=== PATIENT | female | born 1985 | race Caucasian/White ===

== ENCOUNTER 2016-10-14 08:07 | Emergency (ER) | payer MEDICAID ==
[~2016-10-14] VITALS: Ht 162.6 cm; Wt 100.0 kg
[~2016-10-14 08:07] MED LIST: PANT40IN3 PO; ZOFR4TAB3 SL
[2016-10-14 08:18] VITALS: BP 145/81; PULSE 87; RESP 16; TEMP 98.2; O2SAT 100
[2016-10-14] MEDS ORDERED: HYDROmorphone HCL PF 1 MG/ML VIAL IVS ONE (08:45)
[2016-10-14] MEDS ORDERED: PROCHLORPERAZINE INJ 10 MG/2 ML VIAL IV PUSH ONE (08:45)
[2016-10-14] MEDS ORDERED: ONDANSETRON HCL 4 MG/2 ML VIAL IVP ONE (08:45)
[2016-10-14] MEDS ORDERED: SODIUM CHLOR 0.9% 1000 ML INJ 1,000 ML IV ONE (08:45)
[2016-10-14] MEDS ORDERED: SODIUM CHLORIDE 0.9% FLUSH 10 ML FLUSH IV FLUSH PRN (08:45)
--- NOTE | 2016-10-14 08:47 | PD ---
HPI Chief Complaint: Abdominal Pain Time Seen by Provider: 08:23 Travel History International Travel<30 days: No Contact w/Intl Traveler<30days: No Traveled to known affect area: No History of Present Illness HPI The patient was seen and examined in the presence of the nurse. At no point in time was I in the room without the nurse present. This patient complains of abdominal pain and nausea and vomiting and diarrhea. Duration 4 hours. Symptoms are severe according to the patient. No alleviating factors. Patient is moaning and writhing about in the room. Challenging to evaluate. She is anxious and hyperventilating. PFSH Past Medical History Anxiety: Yes Cardiovascular Problems: No Cerebrovascular Accident: No Diabetes: Yes (GESTATIONAL) Patient Takes Glucophage: No Diminished Hearing: No Gastrointestinal Disorders: Yes (diarrhea 3 days ago- no recent episodes) GERD: Yes Genitourinary: No Headaches: Yes Hiatal Hernia: No Kidney Stones: Yes (at age less than 10) Musculoskeletal: No Neurologic: No Reproductive: No Respiratory: No Immunizations Current: Yes Migraines: Yes Seizures: No Ulcer: Yes Tetanus Vaccination: Unknown ?: Not LMP: 1 1/2 weeks : 4 Para: 2 Miscarriage: 1 : 1 Past Surgical History Section: Yes (X 1) Gynecologic Surgery: Yes () Other Surgery: Yes Social History Alcohol Use: Yes (occ) Tobacco Use: No Substance Use: No Allergies-Medications (Allergen,Severity, Reaction): Coded Allergies: No Known Allergies (Unverified , 10/14/16) Reported Meds & Prescriptions Reported Meds & Active Scripts Active No Active Prescriptions or Reported Medications Review of Systems General / Constitutional: No: Fever Eyes: No: Visual changes HENT: No: Headaches Cardiovascular: No: Chest Pain or Discomfort Respiratory: No: Shortness of Breath Gastrointestinal: Positive: Nausea, Vomiting, Diarrhea, Abdominal Pain Genitourinary: No: Dysuria Musculoskeletal: No: Pain Skin: No Rash Neurologic: No: Weakness Psychiatric: Positive: Anxiety, No: Depression Endocrine: No: Polydipsia Hematologic/Lymphatic: No: Easy Bruising Physical Exam Narrative GENERAL: Overweight well-developed patient anxious and hyperventilating and moaning in the bed. SKIN: Focused skin assessment reveals no rash and nodules. Skin is Warm and dry. HEAD: Atraumatic. Normocephalic. EYES: Pupils equal and round. No scleral icterus. No injection or drainage. ENT: No nasal bleeding or discharge. Mucous membranes pink and moist. NECK: Trachea midline. No JVD. CARDIOVASCULAR: Regular rate and rhythm. No murmur appreciated. RESPIRATORY: No accessory muscle use. Clear to auscultation. Breath sounds equal bilaterally. GASTROINTESTINAL: Abdomen soft, obese, periumbilical tenderness without rebound or guarding, nondistended. Hepatic and splenic margins not palpable. MUSCULOSKELETAL: No obvious deformities. No clubbing. No cyanosis. No edema. NEUROLOGICAL: Awake and alert. No obvious cranial nerve deficits. Motor grossly within normal limits. Normal speech. PSYCHIATRIC: Very anxious mood and affect; insight and judgment questionable. Data Data Last Documented VS Vital Signs Date Time Temp Pulse Resp B/P Pulse Ox O2 Delivery O2 Flow Rate FiO2 10/14/16 08:31 16 10/14/16 08:18 98.2 87 145/81 100 Orders Beta Hcg (Quant/Titer) (10/14/16 08:39) Complete Blood Count With Diff (10/14/16 08:39) Comprehensive Metabolic Panel (10/14/16 08:39) Lipase (10/14/16 08:39) Iv Access Insert/Monitor (10/14/16 08:39) NPO (10/14/16 08:39) Ondansetron Inj (Zofran Inj) (10/14/16 08:45) Sodium Chloride 0.9% Flush (Ns Flush) (10/14/16 08:45) Hydromorphone Pf Inj (Dilaudid Pf Inj) (10/14/16 08:45) Sodium Chlor 0.9% 1000 Ml Inj (Ns 1000 M (10/14/16 08:45) Prochlorperazine Inj (Compazine Inj) (10/14/16 08:45) Lorazepam Inj (Ativan Inj) (10/14/16 09:00) Labs Laboratory Tests Test 10/14/16 08:52 White Blood Count 18.9 TH/MM3 Red Blood Count 5.28 MIL/MM3 Hemoglobin 13.8 GM/DL Hematocrit 42.0 % Mean Corpuscular Volume 79.5 FL Mean Corpuscular Hemoglobin 26.1 PG Mean Corpuscular Hemoglobin 32.8 % Concent Red Cell Distribution Width 13.4 % Platelet Count 240 TH/MM3 Mean Platelet Volume 10.1 FL Neutrophils (%) (Auto) 78.3 % Lymphocytes (%) (Auto) 16.4 % Monocytes (%) (Auto) 4.3 % Eosinophils (%) (Auto) 0.8 % Basophils (%) (Auto) 0.2 % Neutrophils # (Auto) 14.8 TH/MM3 Lymphocytes # (Auto) 3.1 TH/MM3 Monocytes # (Auto) 0.8 TH/MM3 Eosinophils # (Auto) 0.2 TH/MM3 Basophils # (Auto) 0.0 TH/MM3 CBC Comment DIFF FINAL Differential Comment Sodium Level 141 MEQ/L Potassium Level 3.7 MEQ/L Chloride Level 104 MEQ/L Carbon Dioxide Level 24.9 MEQ/L Anion Gap 12 MEQ/L Blood Urea Nitrogen 15 MG/DL Creatinine 0.78 MG/DL Estimat Glomerular Filtration 87 ML/MIN Rate Random Glucose 160 MG/DL Calcium Level 9.7 MG/DL Total Bilirubin 0.3 MG/DL Aspartate Amino Transf 14 U/L (AST/SGOT) Alanine Aminotransferase 25 U/L (ALT/SGPT) Alkaline Phosphatase 69 U/L Total Protein 8.0 GM/DL Albumin 4.1 GM/DL Lipase 196 U/L Human Chorionic Gonadotropin, LESS THAN 1 Quant MIU/ML MDM Medical Decision Making Medical Screen Exam Complete: Yes Emergency Medical Condition: Yes Medical Record Reviewed: Yes Differential Diagnosis Gastroparesis, cyclical vomiting syndrome, narcotic withdrawal Narrative Course I have reviewed the patient's electronic medical record. Patient is a frequent visitor for this same problem. She's had 4 CT scans of the abdomen and pelvis over the last urine affect and all negative for acute problem but show fatty liver IV placed I gave her IV Zofran and IV Compazine and IV Dilaudid for symptom relief I gave her 1 L normal saline IV bolus CBC shows leukocytosis as expected for active retching and vomiting Metabolic profile is normal LFTs are normal Lipase is normal Beta hCG is negative On recheck patient is resting comfortably, much improved. This is a flare of a recurrent problem. Feel imaging is needed at this point. She's had 4 CT scans for the same thing in the past. I wrote her some Zofran Recommend clear liquids for 24 hours and GI follow-up Diagnosis Primary Impression: Nausea vomiting and diarrhea Additional Impression: Abdominal pain Qualified Code: R10.84 - Generalized abdominal pain Additional Instructions: The patient was advised to follow up with their physician and return if they worsen. I have recommended clear liquids for 24 hours, then gradually advance as tolerated. Med/Other Pt SpecificInfo: Prescription(s) given Scripts Ondansetron (Zofran)4 Mg Tab4 Mg PO Q6HR PRN (NAUSEA OR VOMITING) #15 TAB Ref 0 Prov:Fitz Hinds MD 10/14/16 Disposition: 01 DISCHARGE HOME Condition: Stable Fitz Hinds MD Oct 14, 2016 08:47
[2016-10-14] MEDS ORDERED: LORazepam 2 MG/ML VIAL IV PUSH ONE (09:00)
[2016-10-14 09:11] LABS: CHLORIDE 104 MEQ/L (98-107); POTASSIUM 3.7 MEQ/L (3.5-5.1); SODIUM (NA) 141 MEQ/L (136-145)
[2016-10-14 09:13] LABS: AUTOMATED NEUTROPHIL # 14.8 TH/MM3 (1.8-7.7); BASOPHIL % 0.2 % (0.0-2.0); EOSINOPHIL # 0.2 TH/MM3 (0-0.4); EOSINOPHIL % 0.8 % (0.0-4.0); LYMPH % 16.4 % (9.0-44.0); LYMPHOCYTE # 3.1 TH/MM3 (1.0-4.8); MEAN CELL VOLUME 79.5 FL (80.0-100.0); MEAN CORPUSCULAR HEMOGLOBIN 26.1 PG (27.0-34.0); MEAN CORPUSCULAR HGB CONC 32.8 % (32.0-36.0); MONO % 4.3 % (0.0-8.0); NEUT % 78.3 % (16.0-70.0); PLATELET COUNT 240 TH/MM3 (150-450); RED BLOOD COUNT 5.28 MIL/MM3 (4.00-5.30); RED CELL DISTRIBUTION WIDTH 13.4 % (11.6-17.2); WHITE BLOOD COUNT 18.9 TH/MM3 (4.0-11.0)
[2016-10-14 09:15] LABS: ANION GAP 12 MEQ/L (5-15); BICARBONATE 24.9 MEQ/L (21.0-32.0); BLOOD UREA NITROGEN 15 MG/DL (7-18)
[2016-10-14 09:18] LABS: ALT (GPT) 25 U/L (10-53); AST (GOT) 14 U/L (15-37); GLOMERULAR FILTRATION RATE 87 ML/MIN (>89)
[2016-10-14 09:20] LABS: HEMO FLAGS DIFF FINAL; TOTAL BILIRUBIN ADULT 0.3 MG/DL (0.2-1.0)
[2016-10-14 09:21] LABS: ALKALINE PHOSPHATASE 69 U/L (45-117)
[2016-10-14 09:23] LABS: BETA HCG QUANT LESS THAN 1 MIU/ML (0-5)
[2016-10-14 09:44] VITALS: BP 147/82
[2016-10-14] MEDS ORDERED: ZOFR4TAB PO (09:44)
== END 2016-10-14 09:55 | disposition home or self-care (01) ==
LOC: PHED 08:07
DX: R19.7 Diarrhea, unspecified (principal); R10.84 Generalized abdominal pain; R11.2 Nausea with vomiting, unspecified
CPT/HCPCS: 80053; 83690; 84702; 85025; 96361; 96374; 96375; 99284; J0780; J1170; J2060; J2405; J7030

== ENCOUNTER 2016-10-15 19:48 | Observation (INO) | payer MEDICAID ==
[~2016-10-15] VITALS: Ht 162.6 cm; Wt 103.3 kg
[~2016-10-15 19:48] MED LIST changes: -PANT40IN3 PO; +ZOFR4TAB PO; -ZOFR4TAB3 SL
[2016-10-15 19:52] VITALS: BP 182/89; PULSE 75; RESP 18; TEMP 98.4; O2SAT 98
[2016-10-15] MEDS ORDERED: ONDANSETRON HCL 4 MG/2 ML VIAL IV PUSH ONE (20:00)
[2016-10-15] MEDS ORDERED: SODIUM CHLOR 0.9% 1000 ML INJ 1,000 ML IV ONE ×2 (20:00)
--- NOTE | 2016-10-15 20:06 | PD ---
HPI Chief Complaint: GI Complaint Time Seen by Provider: 19:58 Travel History International Travel<30 days: No Contact w/Intl Traveler<30days: No Traveled to known affect area: No History of Present Illness HPI This 31-year-old female is complaining of epigastric pain and vomiting. She says the symptoms started a few hours ago. She had some symptoms yesterday and was seen in the ER and given some meds and gallbladder she says she gets attacks like this once or twice a year. She has had endoscopy and apparently has a gastric ulcer. She is on Prilosec. She is having epigastric pain and vomiting she has vomited repeatedly since the onset of these symptoms. She says there is no chance of . She has had multiple CAT scans of the abdomen and pelvis. PFSH Past Medical History Anxiety: Yes Cardiovascular Problems: No Cerebrovascular Accident: No Diabetes: Yes (GESTATIONAL) Diminished Hearing: No Gastrointestinal Disorders: Yes (diarrhea 3 days ago- no recent episodes) GERD: Yes Genitourinary: No Headaches: Yes Hiatal Hernia: No Kidney Stones: Yes (at age less than 10) Musculoskeletal: No Neurologic: No Reproductive: No Respiratory: No Immunizations Current: Yes Migraines: Yes Seizures: No Ulcer: Yes ?: Not LMP: 10 DAYS AGO : 4 Para: 2 Miscarriage: 1 : 1 Past Surgical History Section: Yes (X 1) Gynecologic Surgery: Yes () Other Surgery: Yes Social History Alcohol Use: Yes (occ) Tobacco Use: No Substance Use: No Allergies-Medications (Allergen,Severity, Reaction): Coded Allergies: No Known Allergies (Unverified , 10/15/16) Reported Meds & Prescriptions Reported Meds & Active Scripts Active Zofran (Ondansetron HCl) 4 Mg Tab 4 Mg PO Q6HR PRN Review of Systems General / Constitutional: No: Fever Eyes: No: Diploplia, Blurred Vision HENT: No: Headaches, Vertigo Cardiovascular: No: Chest Pain or Discomfort, Palpitations Respiratory: No: Cough, Shortness of Breath Gastrointestinal: Positive: Nausea, Vomiting, Abdominal Pain, No: Diarrhea, Constipation Genitourinary: No: Urgency, Frequency Musculoskeletal: No: Myalgias, Arthralgias Skin: No Rash, No Itching Neurologic: Positive: Weakness, No: Dizziness Hematologic/Lymphatic: No: Easy Bruising Physical Exam Narrative GENERAL: Well-developed female. She is vomiting quite violently on arrival SKIN: Focused skin assessment warm/dry. HEAD: Atraumatic. Normocephalic. EYES: Pupils equal and round. No scleral icterus. No injection or drainage. ENT: No nasal bleeding or discharge. Mucous membranes pink and moist. NECK: Trachea midline. No JVD. CARDIOVASCULAR: Regular rate and rhythm. No murmur appreciated. RESPIRATORY: No accessory muscle use. Clear to auscultation. Breath sounds equal bilaterally. GASTROINTESTINAL: Abdomen soft, there is some epigastric tenderness without guarding or rigidity, nondistended. Hepatic and splenic margins not palpable. MUSCULOSKELETAL: No obvious deformities. No clubbing. No cyanosis. No edema. NEUROLOGICAL: Awake and alert. No obvious cranial nerve deficits. Motor grossly within normal limits. Normal speech. PSYCHIATRIC: Appropriate mood and affect; insight and judgment normal. Data Data Last Documented VS Vital Signs Date Time Temp Pulse Resp B/P Pulse Ox O2 Delivery O2 Flow Rate FiO2 10/15/16 20:20 18 10/15/16 19:52 98.4 75 182/89 98 Orders Complete Blood Count With Diff (10/15/16 20:00) Comprehensive Metabolic Panel (10/15/16 20:00) Lipase (10/15/16 20:00) Urinalysis - C+S If Indicated (10/15/16 20:00) Sodium Chlor 0.9% 1000 Ml Inj (Ns 1000 M (10/15/16 20:00) Sodium Chlor 0.9% 1000 Ml Inj (Ns 1000 M (10/15/16 20:00) Ondansetron Inj (Zofran Inj) (10/15/16 20:00) Hydromorphone Pf Inj (Dilaudid Pf Inj) (10/15/16 20:15) Metoclopramide Inj (Reglan Inj) (10/15/16 20:15) Prochlorperazine Inj (Compazine Inj) (10/15/16 20:45) Diphenhydramine Inj (Benadryl Inj) (10/15/16 20:45) Lorazepam Inj (Ativan Inj) (10/15/16 20:45) Potassium Chlor 20 Meq Premix (Kcl 20 Me (10/15/16 21:00) Labs Laboratory Tests Test 10/15/16 20:23 White Blood Count 19.7 TH/MM3 Red Blood Count 5.55 MIL/MM3 Hemoglobin 14.4 GM/DL Hematocrit 44.8 % Mean Corpuscular Volume 80.6 FL Mean Corpuscular Hemoglobin 26.0 PG Mean Corpuscular Hemoglobin 32.3 % Concent Red Cell Distribution Width 13.2 % Platelet Count 254 TH/MM3 Mean Platelet Volume 9.7 FL Neutrophils (%) (Auto) 79.9 % Lymphocytes (%) (Auto) 13.3 % Monocytes (%) (Auto) 3.8 % Eosinophils (%) (Auto) 1.5 % Basophils (%) (Auto) 1.5 % Neutrophils # (Auto) 15.8 TH/MM3 Lymphocytes # (Auto) 2.6 TH/MM3 Monocytes # (Auto) 0.7 TH/MM3 Eosinophils # (Auto) 0.3 TH/MM3 Basophils # (Auto) 0.3 TH/MM3 CBC Comment AUTO DIFF Sodium Level 141 MEQ/L Potassium Level 3.4 MEQ/L Chloride Level 105 MEQ/L Carbon Dioxide Level 24.9 MEQ/L Anion Gap 11 MEQ/L Blood Urea Nitrogen 8 MG/DL Creatinine 0.84 MG/DL Estimat Glomerular Filtration 80 ML/MIN Rate Random Glucose 134 MG/DL Calcium Level 9.2 MG/DL Total Bilirubin 0.5 MG/DL Aspartate Amino Transf 17 U/L (AST/SGOT) Alanine Aminotransferase 28 U/L (ALT/SGPT) Alkaline Phosphatase 71 U/L Total Protein 8.2 GM/DL Albumin 4.1 GM/DL Lipase 186 U/L [facility] Medical Decision Making Medical Screen Exam Complete: Yes Emergency Medical Condition: Yes Medical Record Reviewed: Yes Differential Diagnosis Differential includes gastroparesis, gastric ulcer, acute vomiting Narrative Course White count today is 19.7. Yesterday was 18,000. She has had persistent vomiting. She's been given Zofran, Reglan, Compazine and Ativan with ongoing vomiting. Diagnosis Primary Impression: Intractable vomiting Qualified Code: R11.2 - Intractable vomiting with nausea, unspecified vomiting type Additional Impression: Leukocytosis Qualified Code: D72.829 - Leukocytosis, unspecified type Admitting Information Admitting Physician Requests: Observation Domingo Hogan MD Oct 15, 2016 20:06
[2016-10-15] MEDS ORDERED: METOCLOPRAMIDE HCL 10 MG/2 ML VIAL IV PUSH ONE (20:15)
[2016-10-15] MEDS ORDERED: HYDROmorphone HCL PF 1 MG/ML VIAL IV PUSH ONE (20:15)
[2016-10-15 20:31] LABS: AUTOMATED NEUTROPHIL # 15.8 TH/MM3 (1.8-7.7); BASOPHIL # 0.3 TH/MM3 (0-0.2); BASOPHIL % 1.5 % (0.0-2.0); EOSINOPHIL # 0.3 TH/MM3 (0-0.4); EOSINOPHIL % 1.5 % (0.0-4.0); HEMATOCRIT 44.8 % (35.0-46.0); LYMPH % 13.3 % (9.0-44.0); LYMPHOCYTE # 2.6 TH/MM3 (1.0-4.8); MEAN CELL VOLUME 80.6 FL (80.0-100.0); MEAN CORPUSCULAR HGB CONC 32.3 % (32.0-36.0); MONO % 3.8 % (0.0-8.0); NEUT % 79.9 % (16.0-70.0); PLATELET COUNT 254 TH/MM3 (150-450); RED BLOOD COUNT 5.55 MIL/MM3 (4.00-5.30); RED CELL DISTRIBUTION WIDTH 13.2 % (11.6-17.2); WHITE BLOOD COUNT 19.7 TH/MM3 (4.0-11.0)
[2016-10-15 20:40] LABS: CHLORIDE 105 MEQ/L (98-107); POTASSIUM 3.4 MEQ/L (3.5-5.1); SODIUM (NA) 141 MEQ/L (136-145)
[2016-10-15 20:44] LABS: ANION GAP 11 MEQ/L (5-15); BICARBONATE 24.9 MEQ/L (21.0-32.0); BLOOD UREA NITROGEN 8 MG/DL (7-18)
[2016-10-15] MEDS ORDERED: PROCHLORPERAZINE INJ 10 MG/2 ML VIAL IV PUSH ONE (20:45)
[2016-10-15] MEDS ORDERED: diphenhydrAMINE HCL 50 MG/ML VIAL IV PUSH ONE (20:45)
[2016-10-15] MEDS ORDERED: LORazepam 2 MG/ML VIAL IV PUSH ONE (20:45)
[2016-10-15 20:47] LABS: ALT (GPT) 28 U/L (10-53); AST (GOT) 17 U/L (15-37); GLOMERULAR FILTRATION RATE 80 ML/MIN (>89)
[2016-10-15 20:48] LABS: TOTAL BILIRUBIN ADULT 0.5 MG/DL (0.2-1.0)
[2016-10-15 20:50] LABS: ALKALINE PHOSPHATASE 71 U/L (45-117); HEMO FLAGS AUTO DIFF
[2016-10-15 21:00] VITALS: BP 140/85; PULSE 82; RESP 18; O2SAT 96
[2016-10-15] MEDS ORDERED: POTASSIUM CHLOR 20 MEQ PREMIX 100 ML IV ONE (21:00)
[2016-10-15 21:34] LABS: PLATELET ESTIMATE SMEAR NORMAL (NORMAL); PLATELET MORPHOLOGY NORMAL (NORMAL); SCAN/DIFF AUTO DIFF CONFIRMED
[2016-10-15 21:35] LABS: BLOOD, URINE NEG (NEG); GLUCOSE,URINE NEG (NEG); NITRITE,URINE NEG (NEG); PH, URINE 8.5 (5.0-8.5)
[2016-10-15 21:44] LABS: KETONE, URINE 80 OR GREATER mg/dL (NEG)
[2016-10-15 21:45] LABS: URINE COLOR YELLOW (YELLW/STRAW)
[2016-10-15 21:46] LABS: MUCUS URINE MOD /lpf (OCC); SQUAMOUS EPITHELIAL CELL URINE > 8 /hpf (0-5)
[2016-10-15 21:49] LABS: COMMENT (UR) CULT NOT INDICATED; CULTURE IF INDICATED CULT NOT INDICATED
[2016-10-15 21:50] VITALS: BP 135/94; PULSE 72; RESP 18; O2SAT 97
[2016-10-15 21:50] LABS: BACTERIA, URINE OCC /hpf
[2016-10-15] MEDS ORDERED: SODIUM CHLOR 0.9% 1000 ML INJ 1,000 ML IV SCH (22:09)
[2016-10-15] MEDS ORDERED: NALOXONE HCL 0.4 MG/ML AMP IV PRN (22:15)
[2016-10-15] MEDS ORDERED: ONDANSETRON HCL 4 MG/2 ML VIAL IVP PRN (22:15)
[2016-10-15] MEDS ORDERED: SODIUM CHLORIDE 0.9% FLUSH 10 ML FLUSH IV FLUSH PRN (22:15)
[2016-10-15 22:50] VITALS: BP 168/95; PULSE 83; RESP 19; TEMP 98.3; O2SAT 99
[2016-10-15 23:22] VITALS: PULSE 95
[2016-10-16] MEDS: HYDROmorphone HCL PF 1 MG/ML VIAL IV PUSH PRN ×2 (00:51→05:04)
[2016-10-16 04:00] VITALS: BP 114/70; PULSE 72; RESP 18; TEMP 97.3; O2SAT 97
[2016-10-16 06:29] LABS: AUTOMATED NEUTROPHIL # 11.5 TH/MM3 (1.8-7.7); BASOPHIL # 0.1 TH/MM3 (0-0.2); BASOPHIL % 0.6 % (0.0-2.0); EOSINOPHIL # 0.1 TH/MM3 (0-0.4); EOSINOPHIL % 0.4 % (0.0-4.0); HEMATOCRIT 38.9 % (35.0-46.0); HEMO FLAGS DIFF FINAL; LYMPH % 21.2 % (9.0-44.0); LYMPHOCYTE # 3.4 TH/MM3 (1.0-4.8); MEAN CELL VOLUME 79.7 FL (80.0-100.0); MEAN CORPUSCULAR HEMOGLOBIN 26.3 PG (27.0-34.0); MONO % 5.3 % (0.0-8.0); NEUT % 72.5 % (16.0-70.0); PLATELET COUNT 204 TH/MM3 (150-450); RED BLOOD COUNT 4.89 MIL/MM3 (4.00-5.30); RED CELL DISTRIBUTION WIDTH 13.2 % (11.6-17.2); WHITE BLOOD COUNT 15.9 TH/MM3 (4.0-11.0)
[2016-10-16 06:42] LABS: POTASSIUM 3.6 MEQ/L (3.5-5.1)
[2016-10-16] MEDS ORDERED: D5-1/2 NS + KCL 20 MEQ INJ 1,000 ML IV SCH (07:00)
[2016-10-16 07:06] LABS: BICARBONATE 25.2 MEQ/L (21.0-32.0)
[2016-10-16 07:50] LABS: AMPHETAMINE, URINE NEG (NEG); BARBITURATES, URINE NEG (NEG); COCAINE, URINE NEG (NEG)
[2016-10-16 08:00] VITALS: BP 137/85; PULSE 72; RESP 20; TEMP 98; O2SAT 98
[2016-10-16] MEDS ORDERED: PROCHLORPERAZINE INJ 10 MG/2 ML VIAL IV PUSH PRN (08:45)
--- NOTE | 2016-10-16 08:52 | HHI.HP ---
[facility] [place] No Primary Care Physician Admission Diagnosis INTRACTABLE VOMITING, LEUKOCYTOSIS Diagnoses: (1) Intractable vomiting Diagnosis: Principal (2) Leukocytosis Diagnosis: Principal Chief Complaint: Nausea, vomiting Travel History International Travel<30 Days: No Contact w/Intl Traveler <30 Da: No Traveled to Known Affected Are: No History of Present Illness 31-year-old female with history of gastroesophageal reflux, anxiety who presented to hospital because of nausea and vomiting. Patient states 2 days ago she had sudden onset of nausea vomiting in which she was tolerating minimal liquids. The patient came to the ER at that time, she was given Zofran and IV fluids and discharged home with a prescription for Zofran. Patient did not fill the prescription and she was able to sleep through the night and when she woke up yesterday morning she felt rather well and ate some soup. After she had finished eating the soup she had another episode of nausea and vomiting in which she was unable to keep anything down throughout the rest of the day. The patient came back to emergency department. She was given Zofran IV fluids again, according to the patient with improvement. Is recommended by the ER physician the patient be observed overnight for further recommendations and management. Upon seeing the patient today she has been given Zofran this morning and she states that she did have one episode of vomiting. She indicates that she gets episodes of these symptoms at least 1-2 times a year. Patient has had endoscopy done 04/03/16. At that time patient had hemorrhagic gastritis in the fundus likely due to mechanical trauma from vomiting. Antral gastritis. Patient does take Prilosec at home. She has not followed up with any GI physician since her admissions. Patient had drug screen performed which did indicate positive for marijuana. Patient states that she was a heavy user and quit using marijuana 30 days ago. Overall, patient appears to be improving , nontoxic-appearing Review of Systems Constitutional: DENIES: Diaphoretic episodes, Fatigue, Fever, Weight gain, Weight loss, Chills, Dizziness, Change in appetite, Night Sweats Eyes: DENIES: Blurred vision, Diplopia, Eye inflammation, Eye pain, Vision loss , Photosensitivity, Double Vision Ears, nose, mouth, throat: DENIES: Tinnitus, Hearing loss, Vertigo, Nasal discharge, Oral lesions, Throat pain, Hoarseness, Ear Pain, Running Nose, Epistaxis, Sinus Pain, Toothache, Odynophagia Respiratory: DENIES: Apneas, Cough, Snoring, Wheezing, Hemoptysis, Sputum production, Shortness of breath Cardiovascular: DENIES: Chest pain, Palpitations, Syncope, Dyspnea on Exertion , PND, Lower Extremity Edema, Orthopnea, Claudication Gastrointestinal: COMPLAINS OF: Nausea, Vomiting, DENIES: Abdominal pain, Black stools, Bloody stools, Constipation, Diarrhea, Difficulty Swallowing, Anorexia Neurologic: DENIES: Abnormal gait, Headache, Localized weakness, Paresthesias, Seizures, Speech Problems, Tremor, Poor Balance Psychiatric: COMPLAINS OF: Anxiety, DENIES: Confusion, Mood changes, Depression Past Family Social History Past Medical History Gastroesophageal reflux Anxiety Past Surgical History Stitches laceration to her neck Reported Medications Reported Meds & Active Scripts Active Zofran (Ondansetron HCl) 4 Mg Tab 4 Mg PO Q6HR PRN Allergies: Coded Allergies: No Known Allergies (Unverified , 10/15/16) Family History Reviewed is significant for both parents with diabetes Social History Patient denies any tobacco, indicates she does drink alcohol rarely. States that she quit using marijuana 1 month ago Physical Exam Vital Signs Vital Signs Date Time Temp Pulse Resp B/P Pulse Ox O2 Delivery O2 Flow Rate FiO2 10/16/16 04:00 97.3 72 18 114/70 97 10/15/16 23:22 95 10/15/16 22:50 98.3 83 19 168/95 99 10/15/16 21:50 72 18 135/94 97 Room Air 10/15/16 21:10 18 10/15/16 21:00 82 18 140/85 96 Room Air 10/15/16 20:20 18 10/15/16 19:52 98.4 75 18 182/89 98 Physical Exam GENERAL: Well-developed, well-nourished, in no acute distress. alert and orientated HEENT: Head is normocephalic without any lesions or masses noted. Facial features are symmetric. Eyes: Pupils equal round reactive to light. Extraocular muscles are intact. Conjunctivae were clear. Oropharyngeal: Pharynx without any erythema edema. Tongue is midline without deviation. Buccal mucosa is moist without any masses or lesions NECK: Supple without any masses. Trachea midline no deviation. No JVD, no bruits are appreciated CARDIAC: Regular rhythm, regular rate. S1/S2 are heard. No murmurs gallops or rubs. LUNGS: Clear to auscultation bilaterally. No wheeze, rhonchi or rales. No use of accessory muscles on inspiration or expiration. ABDOMEN: Soft, nontender. Nondistended. Bowel sounds heard in all 4 quadrants. No organomegaly or masses. Negative rebound, negative guarding EXTREMITIES: No edema, pulses are equal bilaterally. No cyanosis or clubbing NEUROLOGY: Mood and affect appear appropriate. Cranial nerves II through XII grossly intact. Muscle strength 5/5 in upper and lower extremities bilaterally. Deep tendon reflexes are 2+ in upper and lower extremities bilaterally. Laboratory Laboratory Tests Test 10/15/16 10/15/16 10/16/16 20:23 21:25 05:39 White Blood Count 19.7 15.9 Red Blood Count 5.55 4.89 Hemoglobin 14.4 12.8 Hematocrit 44.8 38.9 Mean Corpuscular Volume 80.6 79.7 Mean Corpuscular Hemoglobin 26.0 26.3 Mean Corpuscular Hemoglobin 32.3 33.0 Concent Red Cell Distribution Width 13.2 13.2 Platelet Count 254 204 Mean Platelet Volume 9.7 10.0 Neutrophils (%) (Auto) 79.9 72.5 Lymphocytes (%) (Auto) 13.3 21.2 Monocytes (%) (Auto) 3.8 5.3 Eosinophils (%) (Auto) 1.5 0.4 Basophils (%) (Auto) 1.5 0.6 Neutrophils # (Auto) 15.8 11.5 Lymphocytes # (Auto) 2.6 3.4 Monocytes # (Auto) 0.7 0.8 Eosinophils # (Auto) 0.3 0.1 Basophils # (Auto) 0.3 0.1 CBC Comment AUTO DIFF DIFF FINAL Differential Comment AUTO DIFF CONFIRMED Platelet Estimate NORMAL Platelet Morphology Comment NORMAL Red Cell Morphology Comment NORMAL Sodium Level 141 143 Potassium Level 3.4 3.6 Chloride Level 105 108 Carbon Dioxide Level 24.9 25.2 Anion Gap 11 10 Blood Urea Nitrogen 8 5 Creatinine 0.84 0.50 Estimat Glomerular Filtration 80 146 Rate Random Glucose 134 84 Calcium Level 9.2 8.2 Total Bilirubin 0.5 Aspartate Amino Transf 17 (AST/SGOT) Alanine Aminotransferase 28 (ALT/SGPT) Alkaline Phosphatase 71 Total Protein 8.2 Albumin 4.1 Lipase 186 Urine Color YELLOW Urine Turbidity CLEAR Urine pH 8.5 Urine Specific [place]ble 1.019 Urine Protein NEG Urine Glucose (UA) NEG Urine Ketones 80 OR GREATER Urine Occult Blood NEG Urine Nitrite NEG Urine Bilirubin NEG Urine Leukocyte Esterase NEG Urine WBC 3-5 Urine Squamous Epithelial > 8 Cells Urine Amorphous Sediment FEW Urine Bacteria OCC Urine Mucus MOD Microscopic Urinalysis Comment CULT NOT INDICATED Urine Opiates Screen NEG Urine Barbiturates Screen NEG Urine Amphetamines Screen NEG Urine Benzodiazepines Screen NEG Urine Cocaine Screen NEG Urine Cannabinoids Screen POS Result Diagram: 10/16/1639 10/16/16538 Assessment and Plan Assessment and Plan //Nausea and vomiting: Could be a component of multiple etiologies to include hyperemesis syndrome from marijuana, gastritis, gastroparesis Continue IV fluids Zofran has been ordered, will add Compazine at this time Start clear liquid diet Continue proton pump inhibitor If patient able to tolerate diet, likely discharge later this afternoon //Leukocytosis, likely reactive and due to concentration, improving Patient afebrile, urinalysis clear, no obvious signs of infection //DVT prevention Low risk, early ambulation Written by Fitz Sanches PA-C, acting as scribe for Dr. Barakat on 10/16/16 at 0852. All or portions of this note were transcribed by scribe [Fitz Sanches PA-C] . I, Dr. Juwan Barakat personally performed the history, physical exam, and medical decision making; and confirmed the accuracy of the information in the transcribed note. Authenticated by Dr. Juwan Barakat on 10/17/16 at 10:32. Discharge disposition Discharge home in stable condition if tolerating diet Activity: Ad keysha. Diet: Continue clear liquid diet for at least 3-5 days and then advance to brat diet Medications per medication reconciliation Follow-up primary medical doctor one week Problem Qualifiers (1) Intractable vomiting: Qualified Code: R11.2 - Intractable vomiting with nausea, unspecified vomiting type (2) Leukocytosis: Qualified Code: D72.829 - Leukocytosis, unspecified type Fitz Sanches Oct 16, 2016 08:52 Juwan Barakat MD Oct 17, 2016 10:33
[2016-10-16] MEDS ORDERED: SODIUM CHLORIDE 0.9% FLUSH 10 ML FLUSH IV FLUSH SCH (09:00)
[2016-10-16] MEDS ORDERED: PANTOPRAZOLE SOD 40 MG DELAYED RELEASE TAB PO SCH (09:00)
[2016-10-16 13:44] LABS: POTASSIUM 3.6 MEQ/L (3.5-5.1)
[2016-10-16 13:58] LABS: BICARBONATE 24.9 MEQ/L (21.0-32.0); MAGNESIUM 2.1 MG/DL (1.5-2.5)
[2016-10-16] MEDS ORDERED: PROC10TA PO (14:04)
--- NOTE | 2016-10-16 14:04 | HHI.DCPOC ---
Discharge Care Plan Diagnosis: (1) Intractable vomiting (2) Leukocytosis Goals to Promote Your Health * To prevent worsening of your condition and complications * To maintain your health at the optimal level Directions to Meet Your Goals Take your medications as prescribed Follow your dietary instruction Follow activity as directed Keep your appointments as scheduled Take your immunizations and boosters as scheduled If your symptoms worsen call your PCP, if no PCP go to Urgent Care Center or Emergency Room Smoking is Dangerous to Your Health. Avoid second hand smoke Call the 24-hour hour crisis hotline for domestic abuse at Fitz Sanches Oct 16, 2016 14:04
[2016-10-17] MEDS ORDERED: DICY10 PO (18:25)
== END 2016-10-16 15:19 | disposition home or self-care (01) ==
LOC: PHED 19:48 → PHEDA 21:29 → PH3A 22:34
PROVIDERS: ADMIT Internal Medicine; ATTEND Internal Medicine
DX: R11.2 Nausea with vomiting, unspecified (principal); D72.829 Elevated white blood cell count, unspecified; K21.9 Gastro-esophageal reflux disease without esophagitis; F41.9 Anxiety disorder, unspecified; Z88.8 Allergy status to other drugs, medicaments and biological substances
CPT/HCPCS: 80048; 80053; 80069; 80307; 81001; 83690; 83735; 85025; 96361; 96374; 96375; 99284; G0378; J0780; J1170; J1200; J2060; J2405; J2765; J3480; J7030

== ENCOUNTER 2016-10-17 16:28 | Observation (INO) | payer MEDICAID ==
[~2016-10-17] VITALS: Ht 165.1 cm; Wt 104.1 kg
[~2016-10-17 16:28] MED LIST changes: +PROC10TA PO; -ZOFR4TAB PO
[2016-10-17 16:30] VITALS: BP 156/102; PULSE 91; RESP 20; TEMP 98.3; O2SAT 100
[2016-10-17] MEDS ORDERED: SODIUM CHLOR 0.9% 1000 ML INJ 1,000 ML IV SCH ×2 (16:42→21:00)
[2016-10-17] MEDS ORDERED: PANTOPRAZOLE SODIUM 40 MG VIAL IVP ONE (16:45)
[2016-10-17] MEDS ORDERED: ONDANSETRON HCL 4 MG/2 ML VIAL IVP ONE (16:45)
[2016-10-17] MEDS ORDERED: SODIUM CHLORIDE 0.9% FLUSH 10 ML FLUSH IV FLUSH PRN ×2 (16:45→21:00)
--- NOTE | 2016-10-17 16:46 | PD ---
HPI Chief Complaint: GI Complaint Time Seen by Provider: 16:40 Travel History International Travel<30 days: No Contact w/Intl Traveler<30days: No Traveled to known affect area: No History of Present Illness HPI 31-year-old female with history of gastric ulcer, gastritis, admitted and released yesterday for leukocytosis and vomiting, back here because of ongoing vomiting, epigastric pain which she rates it a 10 out of 10, symptoms she was seen previously multiple 4. She denies any fevers, diarrhea, or any other symptoms. She states that the symptoms initiated after she ate a cracker, seems to worsens with eating. Modifying Factors: Worse with eating Associated Signs & Symptoms: Nausea, vomiting, epigastric abdominal pain Risk Factors: Recently admitted for same, gastritis, chronic abdominal pain PFSH Past Medical History Anxiety: Yes Cardiovascular Problems: No Cerebrovascular Accident: No Diabetes: Yes (GESTATIONAL) Patient Takes Glucophage: No Diminished Hearing: No Gastrointestinal Disorders: Yes (diarrhea 3 days ago- no recent episodes) GERD: Yes Genitourinary: No Headaches: Yes Hiatal Hernia: No Kidney Stones: Yes (at age less than 10) Musculoskeletal: No Neurologic: No Psychiatric: Yes Reproductive: No Respiratory: No Immunizations Current: Yes Migraines: Yes Seizures: No Ulcer: Yes ?: Not LMP: 1 WEEK AGO : 4 Para: 2 Miscarriage: 1 : 1 Past Surgical History Section: Yes (X 1) Gynecologic Surgery: Yes () Other Surgery: Yes Social History Alcohol Use: Yes (occ) Tobacco Use: No Substance Use: No Allergies-Medications (Allergen,Severity, Reaction): Coded Allergies: No Known Allergies (Unverified , 10/17/16) Reported Meds & Prescriptions Reported Meds & Active Scripts Active No Active Prescriptions or Reported Medications Review of Systems Except as stated in HPI: all other systems reviewed are Neg Physical Exam Narrative GENERAL: Well-developed young white female who is currently in moderate distress , retching in the ER without significant vomitus in the bag. Awake and oriented 3. SKIN: Focused skin assessment warm/dry. HEAD: Atraumatic. Normocephalic. EYES: Pupils equal and round. No scleral icterus. No injection or drainage. ENT: No nasal bleeding or discharge. Mucous membranes pink and moist. NECK: Trachea midline. No JVD. CARDIOVASCULAR: Regular rate and rhythm. No murmur appreciated. RESPIRATORY: No accessory muscle use. Clear to auscultation. Breath sounds equal bilaterally. GASTROINTESTINAL: Abdomen soft, epigastric tenderness without guarding or rebound, nondistended. Hepatic and splenic margins not palpable. MUSCULOSKELETAL: No obvious deformities. No clubbing. No cyanosis. No edema. NEUROLOGICAL: Awake and alert. No obvious cranial nerve deficits. Motor grossly within normal limits. Normal speech. PSYCHIATRIC: Appropriate mood and affect; insight and judgment normal. Data Data Last Documented VS Vital Signs Date Time Temp Pulse Resp B/P Pulse Ox O2 Delivery O2 Flow Rate FiO2 10/17/16 17:51 20 100 Room Air 10/17/16 17:51 78 139/90 10/17/16 16:30 98.3 Orders Complete Blood Count With Diff (10/17/16 16:42) Comprehensive Metabolic Panel (10/17/16 16:42) Lipase (10/17/16 16:42) Urinalysis - C+S If Indicated (10/17/16 16:42) Abdomen, Flat & Upright (10/17/16 ) Iv Access Insert/Monitor (10/17/16 16:42) Ecg Monitoring (10/17/16 16:42) Oximetry (10/17/16 16:42) Ondansetron Inj (Zofran Inj) (10/17/16 16:45) Pantoprazole Inj (Protonix Inj) (10/17/16 16:45) Sodium Chlor 0.9% 1000 Ml Inj (Ns 1000 M (10/17/16 16:42) Sodium Chloride 0.9% Flush (Ns Flush) (10/17/16 16:45) Ed Urine Pregnancytest Poc (10/17/16 16:42) Metoclopramide Inj (Reglan Inj) (10/17/16 17:45) Diphenhydramine Inj (Benadryl Inj) (10/17/16 17:45) Al-Mag Hy-Si 40-40-4 Mg/Ml Liq (Mag-Al P (10/17/16 17:45) Lidocaine 2% Viscous (Xylocaine 2% Visco (10/17/16 17:45) Lorazepam Inj (Ativan Inj) (10/17/16 18:15) Tramadol (Ultram) (10/17/16 18:30) Labs Laboratory Tests Test 10/17/16 10/17/16 16:55 17:55 White Blood Count 16.2 TH/MM3 Red Blood Count 5.27 MIL/MM3 Hemoglobin 14.1 GM/DL Hematocrit 42.1 % Mean Corpuscular Volume 79.9 FL Mean Corpuscular Hemoglobin 26.7 PG Mean Corpuscular Hemoglobin 33.4 % Concent Red Cell Distribution Width 13.4 % Platelet Count 241 TH/MM3 Mean Platelet Volume 9.6 FL Neutrophils (%) (Auto) 69.2 % Lymphocytes (%) (Auto) 20.4 % Monocytes (%) (Auto) 6.5 % Eosinophils (%) (Auto) 0.8 % Basophils (%) (Auto) 3.1 % Neutrophils # (Auto) 11.2 TH/MM3 Lymphocytes # (Auto) 3.3 TH/MM3 Monocytes # (Auto) 1.1 TH/MM3 Eosinophils # (Auto) 0.1 TH/MM3 Basophils # (Auto) 0.5 TH/MM3 CBC Comment DIFF FINAL Differential Comment Sodium Level 142 MEQ/L Potassium Level 3.4 MEQ/L Chloride Level 106 MEQ/L Carbon Dioxide Level 21.8 MEQ/L Anion Gap 14 MEQ/L Blood Urea Nitrogen 7 MG/DL Creatinine 0.72 MG/DL Estimat Glomerular Filtration 96 ML/MIN Rate Random Glucose 107 MG/DL Calcium Level 9.5 MG/DL Total Bilirubin 0.4 MG/DL Aspartate Amino Transf 15 U/L (AST/SGOT) Alanine Aminotransferase 29 U/L (ALT/SGPT) Alkaline Phosphatase 68 U/L Total Protein 8.1 GM/DL Albumin 4.1 GM/DL Lipase 164 U/L Urine Color YELLOW Urine Turbidity CLEAR Urine pH 8.5 Urine Specific [place] 1.015 Urine Protein NEG mg/dL Urine Glucose (UA) NEG mg/dL Urine Ketones 80 OR GREATER mg/dL Urine Occult Blood NEG Urine Nitrite NEG Urine Bilirubin NEG Urine Leukocyte Esterase NEG Urine WBC 0-2 /hpf Urine Squamous Epithelial > 8 /hpf Cells Urine Amorphous Sediment FEW Urine Mucus FEW /lpf Microscopic Urinalysis Comment CULT NOT INDICATED MDM Medical Decision Making Medical Screen Exam Complete: Yes Emergency Medical Condition: Yes Medical Record Reviewed: Yes Interpretation(s) Laboratory Tests Test 10/17/16 10/17/16 16:55 17:55 White Blood Count 16.2 TH/MM3 (4.0-11.0) Mean Corpuscular Volume 79.9 FL (80.0-100.0) Mean Corpuscular Hemoglobin 26.7 PG (27.0-34.0) Basophils (%) (Auto) 3.1 % (0.0-2.0) Neutrophils # (Auto) 11.2 TH/MM3 (1.8-7.7) Monocytes # (Auto) 1.1 TH/MM3 (0-0.9) Basophils # (Auto) 0.5 TH/MM3 (0-0.2) Potassium Level 3.4 MEQ/L (3.5-5.1) Random Glucose 107 MG/DL (74-106) Urine Ketones 80 OR GREATER mg/dL (NEG) Urine Squamous Epithelial > 8 /hpf (0-5) Cells Urine Mucus FEW /lpf (OCC) Last 24 hours Impressions Abdomen X-Ray 10/17/16 0000 Signed Impressions: Service Date/Time: , October 17, 2016 17:02 - CONCLUSION: Normal examination. Gabe Kerns MD Differential Diagnosis Epigastric abdominal pain with nausea and vomitinggastritis versus gastroparesis versus dehydration versus metabolic issues versus gastroenteritis versus opiate withdrawal Narrative Course Review of patient's previous EGD shows gastritis. Patient was given IV fluids, Zofran initially and continued to complain of vomiting. She was given Reglan, Benadryl, and GI cocktail. She did vomit. She appeared somewhat anxious and patient's nurse states that she may benefit from an anxiolytic. Ativan was given. On reevaluation at 6:20 PM, she appeared fairly comfortable. She states that she had eaten crackers and did not get her medications filled yet, and that is what initiated the episode. At this point, she appears fairly comfortable and does not appear to be in significant distress. She is requesting pain medications. She was given tramadol. She appears to be fairly satisfied with this. It is uncertain whether this is an underlying gastritis, gastroparesis or whether there is some underlying medication seeking. However, I have notified her that she needs to get her nausea medications filled and follow-up with GI as an outpatient. I do not see any significant acute process at this point. She can try Bentyl as well as this may help with some of his symptoms. She should return as needed for any worsening in symptoms. The plan has been discussed with her and she states understanding. Diagnosis Primary Impression: Nausea & vomiting Med/Other Pt SpecificInfo: Prescription(s) given Scripts Dicyclomine (Bentyl)10 Mg Cap10 Mg PO TID PRN (Bowel Management) #12 CAP Ref 0 Prov:Eric Wagner MD 10/17/16 Disposition: 01 DISCHARGE HOME Condition: Stable Eric Wagner MD Oct 17, 2016 16:46
[2016-10-17 17:03] LABS: AUTOMATED NEUTROPHIL # 11.2 TH/MM3 (1.8-7.7); BASOPHIL # 0.5 TH/MM3 (0-0.2); BASOPHIL % 3.1 % (0.0-2.0); EOSINOPHIL # 0.1 TH/MM3 (0-0.4); EOSINOPHIL % 0.8 % (0.0-4.0); HEMATOCRIT 42.1 % (35.0-46.0); HEMO FLAGS DIFF FINAL; LYMPH % 20.4 % (9.0-44.0); LYMPHOCYTE # 3.3 TH/MM3 (1.0-4.8); MEAN CELL VOLUME 79.9 FL (80.0-100.0); MEAN CORPUSCULAR HEMOGLOBIN 26.7 PG (27.0-34.0); MEAN CORPUSCULAR HGB CONC 33.4 % (32.0-36.0); MONO % 6.5 % (0.0-8.0); NEUT % 69.2 % (16.0-70.0); PLATELET COUNT 241 TH/MM3 (150-450); RED BLOOD COUNT 5.27 MIL/MM3 (4.00-5.30); RED CELL DISTRIBUTION WIDTH 13.4 % (11.6-17.2); WHITE BLOOD COUNT 16.2 TH/MM3 (4.0-11.0)
[2016-10-17 17:13] LABS: CHLORIDE 106 MEQ/L (98-107); POTASSIUM 3.4 MEQ/L (3.5-5.1); SODIUM (NA) 142 MEQ/L (136-145)
--- NOTE | 2016-10-17 17:20 | RADHPO ---
EXAM DATE/TIME: 10/17/2016 17:02 [facility] COMPARISON: ABDOMEN FLAT & UPRIGHT, April 01, 2016, 19:59. INDICATIONS : Severe epigastric pain with vomiting and constipation for 3 days. MEDICAL HISTORY : Gastritis. Ulcer. SURGICAL HISTORY : section. ENCOUNTER: Initial ACUITY: 3 days PAIN SCORE: 9/10 LOCATION: upper quadrant abdomen. FINDINGS: Supine and upright views of the abdomen were performed. The abdominal bowel gas pattern is normal. No air fluid levels are seen. No abnormal masses, calcifications, or organomegaly is seen. The visu alized lower lungs are clear. No evidence of free intraperitoneal gas. The osseous structures are u nremarkable. CONCLUSION: Normal examination. Gabe Kerns MD on October 17, 2016 at 17:18 Board Certified Radiologist. This report was verified electronically.
[2016-10-17 17:22] LABS: ALT (GPT) 29 U/L (10-53); ANION GAP 14 MEQ/L (5-15); AST (GOT) 15 U/L (15-37); BICARBONATE 21.8 MEQ/L (21.0-32.0); BLOOD UREA NITROGEN 7 MG/DL (7-18); GLOMERULAR FILTRATION RATE 96 ML/MIN (>89); TOTAL BILIRUBIN ADULT 0.4 MG/DL (0.2-1.0)
[2016-10-17] MEDS ORDERED: diphenhydrAMINE HCL 50 MG/ML VIAL IV PUSH ONE (17:45)
[2016-10-17] MEDS ORDERED: ALUMINUM/MAGNESIUM/SIMETH 30 ML CUP PO ONE (17:45)
[2016-10-17] MEDS ORDERED: LIDOCAINE VISCOUS 2% SOLN 15 ML UDC PO ONE (17:45)
[2016-10-17] MEDS ORDERED: METOCLOPRAMIDE HCL 10 MG/2 ML VIAL IV PUSH ONE (17:45)
[2016-10-17 17:51] VITALS: BP 139/90; PULSE 78; RESP 20; O2SAT 100
[2016-10-17 18:02] LABS: ALKALINE PHOSPHATASE 68 U/L (45-117)
[2016-10-17 18:08] LABS: BLOOD, URINE NEG (NEG); GLUCOSE,URINE NEG (NEG); NITRITE,URINE NEG (NEG); PH, URINE 8.5 (5.0-8.5)
[2016-10-17 18:11] LABS: KETONE, URINE 80 OR GREATER mg/dL (NEG)
[2016-10-17 18:13] LABS: URINE COLOR YELLOW (YELLW/STRAW)
[2016-10-17 18:14] LABS: COMMENT (UR) CULT NOT INDICATED; CULTURE IF INDICATED CULT NOT INDICATED; MUCUS URINE FEW /lpf (OCC); SQUAMOUS EPITHELIAL CELL URINE > 8 /hpf (0-5); WBC, URINE 0-2 /hpf (0-5)
[2016-10-17] MEDS ORDERED: LORazepam 2 MG/ML VIAL IV PUSH ONE (18:15)
[2016-10-17] MEDS ORDERED: DICY10 PO (18:25)
[2016-10-17 18:28] VITALS: BP 161/100; PULSE 80; RESP 18; O2SAT 100
[2016-10-17] MEDS ORDERED: traMADol HCL 50 MG TAB PO ONE (18:30)
[2016-10-17] MEDS ORDERED: PROCHLORPERAZINE INJ 10 MG/2 ML VIAL IV PUSH ONE (19:45)
--- NOTE | 2016-10-17 20:40 | PD ---
Physical Exam Time Seen by Provider: 20:34 Narrative The patient was discharged by Dr. Leroy but the patient states she cannot go home because of the continued vomiting. The patient was given multiple doses of antiemetics including Compazine, Ativan, Reglan, Benadryl and Zofran. She continues to vomit. She is somewhat dramatic and makes loud retching sounds without vomiting anything. She states she was released from this hospital yesterday after being admitted for the same thing but states that she was still vomiting. The patient refuses to go home. Data Data Last Documented VS Vital Signs Date Time Temp Pulse Resp B/P Pulse Ox O2 Delivery O2 Flow Rate FiO2 10/17/16 19:42 18 10/17/16 18:28 80 161/100 100 Room Air 10/17/16 16:30 98.3 Orders Complete Blood Count With Diff (10/17/16 16:42) Comprehensive Metabolic Panel (10/17/16 16:42) Lipase (10/17/16 16:42) Urinalysis - C+S If Indicated (10/17/16 16:42) Abdomen, Flat & Upright (10/17/16 ) Iv Access Insert/Monitor (10/17/16 16:42) Ecg Monitoring (10/17/16 16:42) Oximetry (10/17/16 16:42) Ondansetron Inj (Zofran Inj) (10/17/16 16:45) Pantoprazole Inj (Protonix Inj) (10/17/16 16:45) Sodium Chlor 0.9% 1000 Ml Inj (Ns 1000 M (10/17/16 16:42) Sodium Chloride 0.9% Flush (Ns Flush) (10/17/16 16:45) Ed Urine Pregnancytest Poc (10/17/16 16:42) Metoclopramide Inj (Reglan Inj) (10/17/16 17:45) Diphenhydramine Inj (Benadryl Inj) (10/17/16 17:45) Al-Mag Hy-Si 40-40-4 Mg/Ml Liq (Mag-Al P (10/17/16 17:45) Lidocaine 2% Viscous (Xylocaine 2% Visco (10/17/16 17:45) Lorazepam Inj (Ativan Inj) (10/17/16 18:15) Tramadol (Ultram) (10/17/16 18:30) Prochlorperazine Inj (Compazine Inj) (10/17/16 19:45) Non-Formulary Drug (10/17/16 21:00) Admit Order (Ed Use Only) (10/17/16 20:49) Labs Laboratory Tests Test 10/17/16 10/17/16 16:55 17:55 White Blood Count 16.2 TH/MM3 Red Blood Count 5.27 MIL/MM3 Hemoglobin 14.1 GM/DL Hematocrit 42.1 % Mean Corpuscular Volume 79.9 FL Mean Corpuscular Hemoglobin 26.7 PG Mean Corpuscular Hemoglobin 33.4 % Concent Red Cell Distribution Width 13.4 % Platelet Count 241 TH/MM3 Mean Platelet Volume 9.6 FL Neutrophils (%) (Auto) 69.2 % Lymphocytes (%) (Auto) 20.4 % Monocytes (%) (Auto) 6.5 % Eosinophils (%) (Auto) 0.8 % Basophils (%) (Auto) 3.1 % Neutrophils # (Auto) 11.2 TH/MM3 Lymphocytes # (Auto) 3.3 TH/MM3 Monocytes # (Auto) 1.1 TH/MM3 Eosinophils # (Auto) 0.1 TH/MM3 Basophils # (Auto) 0.5 TH/MM3 CBC Comment DIFF FINAL Differential Comment Sodium Level 142 MEQ/L Potassium Level 3.4 MEQ/L Chloride Level 106 MEQ/L Carbon Dioxide Level 21.8 MEQ/L Anion Gap 14 MEQ/L Blood Urea Nitrogen 7 MG/DL Creatinine 0.72 MG/DL Estimat Glomerular Filtration 96 ML/MIN Rate Random Glucose 107 MG/DL Calcium Level 9.5 MG/DL Total Bilirubin 0.4 MG/DL Aspartate Amino Transf 15 U/L (AST/SGOT) Alanine Aminotransferase 29 U/L (ALT/SGPT) Alkaline Phosphatase 68 U/L Total Protein 8.1 GM/DL Albumin 4.1 GM/DL Lipase 164 U/L Urine Color YELLOW Urine Turbidity CLEAR Urine pH 8.5 Urine Specific [place] 1.015 Urine Protein NEG mg/dL Urine Glucose (UA) NEG mg/dL Urine Ketones 80 OR GREATER mg/dL Urine Occult Blood NEG Urine Nitrite NEG Urine Bilirubin NEG Urine Leukocyte Esterase NEG Urine WBC 0-2 /hpf Urine Squamous Epithelial > 8 /hpf Cells Urine Amorphous Sediment FEW Urine Mucus FEW /lpf Microscopic Urinalysis Comment CULT NOT INDICATED [facility] Medical Record Reviewed: Yes Supervised Visit with JAYDON: Yes Interpretation(s) The CBC shows a white count of 16,200 but is otherwise unremarkable. The complete metabolic profile shows a potassium of 3.4 but is otherwise normal. The lipase is normal. The urine shows 80 or greater ketones but is otherwise normal and culture is not indicated. Differential Diagnosis Gastritis, gastroparesis, conversion reaction, , electrolyte disorder, dehydration Narrative Course The patient has continued vomiting. Her retching sounds are very loud and may be this way in order to draw attention. Nevertheless, the patient states she cannot go home and will be admitted. I discussed the patient with Dr. Olvera and the patient will be 23 hour observation here. Diagnosis Primary Impression: Leukocytosis Additional Impressions: Intractable vomiting Intractable abdominal pain Admitting Information Admitting Physician Requests: Observation Referrals: Primary Care Physician call for appointment Patient Instructions: General Instructions, Narcotic given in the ED, Acute Nausea and Vomiting (ED) Departure Forms: Tests/Procedures Scripts Dicyclomine (Bentyl)10 Mg Cap10 Mg PO TID PRN (Bowel Management) #12 CAP Ref 0 Prov:Eric Wagner MD 10/17/16 Marco Sanches MD Oct 17, 2016 20:40
[2016-10-17 20:45] VITALS: BP 167/102; PULSE 92; RESP 18; O2SAT 100
[2016-10-17] MEDS ORDERED: DICYCLOMINE HCL 10 MG CAP PO PRN (21:00)
[2016-10-17] MEDS ORDERED: NALOXONE HCL 0.4 MG/ML AMP IV PRN (21:00)
[2016-10-17] MEDS ORDERED: PHENERGAN 25 MG/ML IM ONE (21:00)
[2016-10-17] MEDS: SODIUM CHLORIDE 0.9% FLUSH 10 ML FLUSH IV FLUSH SCH (21:28)
[2016-10-17 21:40] VITALS: BP 167/96; PULSE 79; RESP 18; O2SAT 100
[2016-10-17] MEDS ORDERED: POTASSIUM CHLORIDE 10 MEQ CONTROLLED RELEASE TAB PO ONE (21:45)
[2016-10-17] MEDS ORDERED: DOCUSATE SODIUM 100 MG CAP PO PRN (21:45)
[2016-10-17] MEDS ORDERED: CALCIUM CARBONATE 500 MG CHEWABLE TAB CHEW PRN (21:45)
[2016-10-17] MEDS ORDERED: MAGNESIUM HYDROXIDE SUSP 30 ML CUP PO PRN (21:45)
[2016-10-17] MEDS ORDERED: ACETAMINOPHEN 325 MG TAB PO PRN (21:45)
[2016-10-17 22:15] VITALS: BP 119/84; PULSE 88; RESP 20; TEMP 99.6; O2SAT 97
[2016-10-17 22:22] LABS: MAGNESIUM 1.9 MG/DL (1.5-2.5)
[2016-10-17] MEDS: NS + KCL 20 MEQ INJ 1,000 ML IV SCH (22:47)
[2016-10-17] MEDS: ONDANSETRON HCL 4 MG/2 ML VIAL IVP PRN (22:47)
[2016-10-17] MEDS: METOCLOPRAMIDE HCL 10 MG/2 ML VIAL IV PUSH PRN (23:39)
[2016-10-18] MEDS: ONDANSETRON HCL 4 MG/2 ML VIAL IVP PRN ×2 (05:15→12:18)
[2016-10-18] MEDS: METOCLOPRAMIDE HCL 10 MG/2 ML VIAL IV PUSH PRN (06:40)
[2016-10-18 06:52] LABS: AUTOMATED NEUTROPHIL # 9.8 TH/MM3 (1.8-7.7); BASOPHIL # 0.1 TH/MM3 (0-0.2); BASOPHIL % 0.9 % (0.0-2.0); EOSINOPHIL # 0.1 TH/MM3 (0-0.4); EOSINOPHIL % 0.5 % (0.0-4.0); HEMATOCRIT 37.5 % (35.0-46.0); HEMO FLAGS DIFF FINAL; LYMPHOCYTE # 3.4 TH/MM3 (1.0-4.8); MEAN CELL VOLUME 79.2 FL (80.0-100.0); MEAN CORPUSCULAR HEMOGLOBIN 26.9 PG (27.0-34.0); MEAN CORPUSCULAR HGB CONC 33.9 % (32.0-36.0); MONO % 6.1 % (0.0-8.0); NEUT % 68.5 % (16.0-70.0); PLATELET COUNT 207 TH/MM3 (150-450); RED BLOOD COUNT 4.74 MIL/MM3 (4.00-5.30); RED CELL DISTRIBUTION WIDTH 13.3 % (11.6-17.2); WHITE BLOOD COUNT 14.3 TH/MM3 (4.0-11.0)
[2016-10-18 06:59] LABS: POTASSIUM 3.2 MEQ/L (3.5-5.1)
[2016-10-18 07:40] LABS: BICARBONATE 24.1 MEQ/L (21.0-32.0)
[2016-10-18 08:00] VITALS: BP 120/74; PULSE 69; RESP 18; TEMP 98.6; O2SAT 98
[2016-10-18] MEDS: PANTOPRAZOLE SOD 40 MG DELAYED RELEASE TAB PO SCH (09:00)
[2016-10-18] MEDS: SODIUM CHLORIDE 0.9% FLUSH 10 ML FLUSH IV FLUSH SCH ×2 (09:00→20:26)
[2016-10-18] MEDS: NS + KCL 20 MEQ INJ 1,000 ML IV SCH ×2 (09:07→21:19)
[2016-10-18 12:00] VITALS: BP 121/73; PULSE 59; RESP 18; TEMP 98.2; O2SAT 99
[2016-10-18] MEDS: POTASSIUM CHLOR 10 MEQ PREMIX 100 ML IV SCH ×3 (12:18→14:00)
[2016-10-18] MEDS ORDERED: METO5TAB PO (13:12)
[2016-10-18] MEDS ORDERED: FAMO20TA2 PO (13:12)
--- NOTE | 2016-10-18 13:12 | HHI.DCPOC ---
Discharge Care Plan Diagnosis: (1) Intractable vomiting Your Health Problems Are: Difficulty with ADL Exercise Tolerance Goals to Promote Your Health * To prevent worsening of your condition and complications * To maintain your health at the optimal level Directions to Meet Your Goals Take your medications as prescribed Follow your dietary instruction Follow activity as directed Keep your appointments as scheduled Take your immunizations and boosters as scheduled If your symptoms worsen call your PCP, if no PCP go to Urgent Care Center or Emergency Room Smoking is Dangerous to Your Health. Avoid second hand smoke Call the 24-hour hour crisis hotline for domestic abuse at Davie Kirk MD Oct 18, 2016 13:12
[2016-10-18] MEDS: DOCUSATE SODIUM 50 MG/SENNA 8.6 MG TAB PO SCH ×2 (13:15→20:44)
--- NOTE | 2016-10-18 13:34 | HHI.HP ---
[facility] No Primary Care Physician Admission Diagnosis intractable vomiting/abdominal pain Diagnoses: Chief Complaint: Vomiting Travel History International Travel<30 Days: No Contact w/Intl Traveler <30 Da: No Traveled to Known Affected Are: No History of Present Illness This is a 31-year-old female who returns to the emergency department because of nausea and vomiting. She was admitted 3 days ago for the same symptoms and discharge improved. Impression was symptoms related to hyperemesis syndrome secondary to marijuana use versus gastroenteritis. She denies using marijuana recently despite positive UDS. She was initially tolerating broth and when she advanced to eating crackers she started vomiting associated with burning epigastric pain. Denies abdominal distention, UTI symptoms and diarrhea. She has chronic constipation but passing gas last BM few days ago which is not unusual. In the emergency room abdominal x-ray was unremarkable, she was cleared for discharge but refused to leave. Overnight she had one more episode of vomiting. Today she feels much better with much improved nausea and wants to go home. She is waiting for gastric emptying study to be performed. Denies sick contacts, well water and seafood ingestion as well as recent travel. Patient states she had similar symptoms in the past occurring 1-2 times a year. EMR review shows she had EGD last March 2016 revealing gastritis and had unremarkable abdominal CT Review of Systems Constitutional: DENIES: Diaphoretic episodes, Fatigue, Fever, Weight gain, Weight loss, Chills, Dizziness, Change in appetite, Night Sweats Endocrine: DENIES: Heat/cold intolerance, Polydipsia, Polyuria, Polyphagia Eyes: DENIES: Blurred vision, Diplopia, Vision loss, Photosensitivity Ears, nose, mouth, throat: DENIES: Tinnitus, Vertigo, Throat pain, Hoarseness, Epistaxis, Odynophagia Respiratory: DENIES: Cough, Wheezing, Hemoptysis, Sputum production, Shortness of breath Cardiovascular: DENIES: Chest pain, Palpitations, Syncope, Dyspnea on Exertion , PND, Lower Extremity Edema, Orthopnea, Claudication Gastrointestinal: COMPLAINS OF: Constipation, Nausea, Vomiting, DENIES: Abdominal pain, Black stools, Bloody stools, Diarrhea, Difficulty Swallowing, Anorexia Genitourinary: DENIES: Urinary frequency, Urinary incontinence, Urgency, Hematuria, Dysuria, Nocturia, Vaginal discharge Integumentary: DENIES: Rash Neurologic: DENIES: Headache, Localized weakness, Seizures, Tremor, Poor Balance Psychiatric: DENIES: Anxiety, Confusion, Depression, Hallucinations, Agitation , Suicidal Ideation, Homicidal Ideation, Delusions Past Family Social History Past Medical History As previously mentioned, gestational diabetes mellitus and migraines. LMP a week ago Past Surgical History Discharge section 1 Reported Medications Noncompliant was prescribed Zofran and Compazine during last admission Allergies: Coded Allergies: No Known Allergies (Unverified , 10/17/16) Family History Diabetes mellitus Social History Occasional alcohol use. Marijuana use. Does not smoke Physical Exam Vital Signs Vital Signs Date Time Temp Pulse Resp B/P Pulse Ox O2 Delivery O2 Flow Rate FiO2 10/18/16 12:00 98.2 59 18 121/73 99 10/18/16 08:00 98.6 69 18 120/74 98 10/17/16 22:15 99.6 88 20 119/84 97 10/17/16 21:40 79 18 167/96 100 Room Air 10/17/16 20:45 92 18 167/102 100 Room Air 10/17/16 19:42 18 10/17/16 19:25 18 10/17/16 18:28 80 18 161/100 100 Room Air 10/17/16 17:51 20 100 Room Air 10/17/16 17:51 78 20 139/90 100 Room Air 10/17/16 16:30 98.3 91 20 156/102 100 Physical Exam GENERAL: This is an obese, well-developed patient, in no apparent distress. No signs of dehydration SKIN: No rashes, ecchymoses or lesions. Cool and dry. HEAD: Atraumatic. Normocephalic. No temporal or scalp tenderness. EYES: Pupils equal round and reactive. Extraocular motions intact. No scleral icterus. No injection or drainage. ENT: Nose without bleeding, purulent drainage or septal hematoma. Throat without erythema, tonsillar hypertrophy or exudate. Uvula midline. Airway patent. NECK: Trachea midline. No JVD or lymphadenopathy. Supple, nontender, no meningeal signs. CARDIOVASCULAR: Regular rate and rhythm without murmurs, gallops, or rubs. RESPIRATORY: Clear to auscultation. Breath sounds equal bilaterally. No wheezes , rales, or rhonchi. GASTROINTESTINAL: Abdomen soft, non-tender, nondistended. No guarding. MUSCULOSKELETAL: Extremities without clubbing, cyanosis, or edema. No joint tenderness, effusion, or edema noted. No calf tenderness. Negative Homans sign bilaterally. NEUROLOGICAL: Awake and alert. Cranial nerves II through XII intact. Motor and sensory grossly within normal limits. Five out of 5 muscle strength in all muscle groups. Normal speech. Laboratory Laboratory Tests Test 10/17/16 10/17/16 10/18/16 16:55 17:55 06:15 White Blood Count 16.2 14.3 Red Blood Count 5.27 4.74 Hemoglobin 14.1 12.7 Hematocrit 42.1 37.5 Mean Corpuscular Volume 79.9 79.2 Mean Corpuscular Hemoglobin 26.7 26.9 Mean Corpuscular Hemoglobin 33.4 33.9 Concent Red Cell Distribution Width 13.4 13.3 Platelet Count 241 207 Mean Platelet Volume 9.6 10.1 Neutrophils (%) (Auto) 69.2 68.5 Lymphocytes (%) (Auto) 20.4 24.0 Monocytes (%) (Auto) 6.5 6.1 Eosinophils (%) (Auto) 0.8 0.5 Basophils (%) (Auto) 3.1 0.9 Neutrophils # (Auto) 11.2 9.8 Lymphocytes # (Auto) 3.3 3.4 Monocytes # (Auto) 1.1 0.9 Eosinophils # (Auto) 0.1 0.1 Basophils # (Auto) 0.5 0.1 CBC Comment DIFF FINAL DIFF FINAL Differential Comment Sodium Level 142 144 Potassium Level 3.4 3.2 Chloride Level 106 109 Carbon Dioxide Level 21.8 24.1 Anion Gap 14 11 Blood Urea Nitrogen 7 5 Creatinine 0.72 0.56 Estimat Glomerular Filtration 96 128 Rate Random Glucose 107 84 Calcium Level 9.5 8.2 Magnesium Level 1.9 2.0 Total Bilirubin 0.4 Aspartate Amino Transf 15 (AST/SGOT) Alanine Aminotransferase 29 (ALT/SGPT) Alkaline Phosphatase 68 Total Protein 8.1 Albumin 4.1 Lipase 164 Urine Color YELLOW Urine Turbidity CLEAR Urine pH 8.5 Urine Specific [place] 1.015 Urine Protein NEG Urine Glucose (UA) NEG Urine Ketones 80 OR GREATER Urine Occult Blood NEG Urine Nitrite NEG Urine Bilirubin NEG Urine Leukocyte Esterase NEG Urine WBC 0-2 Urine Squamous Epithelial > 8 Cells Urine Amorphous Sediment FEW Urine Mucus FEW Microscopic Urinalysis Comment CULT NOT INDICATED Result Diagram: 10/18/16 0615 10/18/16 0615 Imaging Last Impressions Abdomen X-Ray 10/17/16 0000 Signed Impressions: Service Date/Time: October 17:02 - CONCLUSION: Normal examination. Gabe Kerns MD Assessment and Plan Problem List: (1) Intractable vomiting ICD Code: R11.10 Status: Acute Assessment and Plan This is a 31-year-old female who returns to the emergency department because of nausea and vomiting. Recent admission for similar symptoms related to hyperemesis syndrome secondary to marijuana use versus gastroenteritis. She denies using marijuana recently despite positive UDS. She has chronic constipation but passing gas last BM few days ago which is not unusual. Abdominal x-ray unremarkable. Intractable nausea and vomiting with a history of , gastritis and GERD. Today she feels much better with much improved nausea and wants to go home. She is waiting for gastric emptying study to be performed. If negative GES, we will advance diet and if tolerated will discharge home. Consider head CT if persistent symptoms. We'll start GI prophylaxis with Zantac Elevated BP secondary to above. This is improved Leukocytosis. This is also resolving Hypokalemia. Replace accordingly. Check magnesium and replace accordingly Noncompliance. Counseled Current medical conditions of obesity and migraine. Patient counseled regarding weight reduction. Low risk for DVT Discussed Condition With Patient Discharge patient to home Condition on discharge: Improved Regular Diet as tolerated Ad Yesenia activity no driving Rx written: Reglan and Zantac Follow-up with primary care physician in one week Davie Kirk MD Oct 18, 2016 13:34
[2016-10-18] MEDS ORDERED: METOCLOPRAMIDE HCL 10 MG/2 ML VIAL IV ONE (14:43)
--- NOTE | 2016-10-18 15:58 | RADHPO ---
EXAM DATE/TIME: 10/18/2016 13:09 [facility] COMPARISON: No previous studies available for comparison. INDICATIONS : Vomiting after eating. DOSE: 1.0 mCi Tc99m Sulfur Colloid Labeled Whole egg PO MEDICATONS: 1.) 5 mg Reglan IV at 90 minutes IMAGIN hrs MEDICAL HISTORY : Gastroesophageal reflux disease. SURGICAL HISTORY : section. ENCOUNTER: Initial ACUITY: 3 days PAIN SCALE: 3/10 LOCATION: Bilateral Abdomen. TECHNIQUE: Following the oral ingestion of radiotracer-labeled meal, dynamic sequential images in the PASHTO projec tion were acquired with simultaneous computer acquisition. The data set was decay-corrected. FINDINGS: LAG PHASE: There is a 20 minutes before onset of gastric emptying. EMPTYING: Gastric emptying kinetics are linear. The decay-corrected, back-extrapolated half-time of emptying i s 60 minutes. (Normal for this lab is 45- 90 minutes.) INTERVENTION: Reglan administered at 90 minutes results in no significant change in rate of emptying CONCLUSION: Normal study Keyon Phillips MD on October 18, 2016 at 15:54 Board Certified Radiologist. This report was verified electronically.
[2016-10-18] MEDS: ONDANSETRON ODT 4 MG TAB SL PRN (18:23)
[2016-10-18 20:45] VITALS: BP 120/69; PULSE 69; RESP 16; TEMP 99.7; O2SAT 97
--- NOTE | 2016-10-18 23:12 | RADHPO ---
EXAM DATE/TIME: 10/18/2016 19:36 [facility] COMPARISON: No previous studies available for comparison. INDICATIONS : Intractible nausea and vomiting. RADIATION DOSE: 58.61 CTDIvol (mGy) MEDICAL HISTORY : Gastroesophageal reflux disease. SURGICAL HISTORY : None. ENCOUNTER: Initial ACUITY: 4 - 6 days PAIN SCALE: 4/10 LOCATION: cranial TECHNIQUE: Multiple contiguous axial images were obtained of the head. Using automated exposure control and adj ustment of the mA and/or kV according to patient size, radiation dose was kept as low as reasonably a chievable to obtain optimal diagnostic quality images. FINDINGS: CEREBRUM: The ventricles are normal for age. No evidence of midline shift, mass lesion, hemorrhage or acute in farction. No extra-axial fluid collections are seen. POSTERIOR FOSSA: The cerebellum and brainstem are intact. The 4th ventricle is midline. The cerebellopontine angle i s unremarkable. EXTRACRANIAL: The visualized portion of the orbits is intact. SKULL: The calvaria is intact. No evidence of skull fracture. CONCLUSION: Normal examination. Keyon Phillips MD on October 18, 2016 at 23:10 Board Certified Radiologist. This report was verified electronically.
[2016-10-19 00:19] VITALS: BP 133/84; PULSE 62; RESP 16; TEMP 99.1; O2SAT 98
[2016-10-19] MEDS ORDERED: POTASSIUM CHLORIDE 25 MEQ EFFERVESCENT TAB PO ONE (06:45)
[2016-10-19] MEDS: PANTOPRAZOLE SOD 40 MG DELAYED RELEASE TAB PO SCH (07:28)
[2016-10-19] MEDS: DOCUSATE SODIUM 50 MG/SENNA 8.6 MG TAB PO SCH (07:29)
[2016-10-19] MEDS: ONDANSETRON ODT 4 MG TAB SL PRN (07:29)
[2016-10-19] MEDS: SODIUM CHLORIDE 0.9% FLUSH 10 ML FLUSH IV FLUSH SCH (07:29)
[2016-10-19] MEDS: NS + KCL 20 MEQ INJ 1,000 ML IV SCH (07:30)
[2016-10-19 08:38] VITALS: BP 131/85; PULSE 62; RESP 14; TEMP 99; O2SAT 97
--- NOTE | 2016-10-19 10:10 | HHI.DS ---
Discharge Summary Admission Date Oct 17, 2016 at 20:50 Discharge Date: Oct 19, 2016 Admitting Diagnosis intractable vomiting/abdominal pain (1) Intractable vomiting ICD Code: R11.10 Procedures None Brief History - From Admission This is a 31-year-old female who returns to the emergency department because of nausea and vomiting. She was admitted 3 days ago for the same symptoms and discharge improved. Impression was symptoms related to hyperemesis syndrome secondary to marijuana use versus gastroenteritis. She denies using marijuana recently despite positive UDS. She was initially tolerating broth and when she advanced to eating crackers she started vomiting associated with burning epigastric pain. Denies abdominal distention, UTI symptoms and diarrhea. She has chronic constipation but passing gas last BM few days ago which is not unusual. In the emergency room abdominal x-ray was unremarkable, she was cleared for discharge but refused to leave. Overnight she had one more episode of vomiting. Today she feels much better with much improved nausea and wants to go home. She is waiting for gastric emptying study to be performed. Denies sick contacts, well water and seafood ingestion as well as recent travel. Patient states she had similar symptoms in the past occurring 1-2 times a year. EMR review shows she had EGD last March 2016 revealing gastritis and had unremarkable abdominal CT CBC/BMP: 10/18/16 0615 10/18/16 0615 Significant Findings Laboratory Tests Test 10/17/16 10/17/16 10/18/16 16:55 17:55 06:15 White Blood Count 16.2 TH/MM3 14.3 TH/MM3 (4.0-11.0) (4.0-11.0) Mean Corpuscular Volume 79.9 FL 79.2 FL (80.0-100.0) (80.0-100.0) Mean Corpuscular Hemoglobin 26.7 PG 26.9 PG (27.0-34.0) (27.0-34.0) Basophils (%) (Auto) 3.1 % (0.0-2.0) Neutrophils # (Auto) 11.2 TH/MM3 9.8 TH/MM3 (1.8-7.7) (1.8-7.7) Monocytes # (Auto) 1.1 TH/MM3 (0-0.9) Basophils # (Auto) 0.5 TH/MM3 (0-0.2) Potassium Level 3.4 MEQ/L 3.2 MEQ/L (3.5-5.1) (3.5-5.1) Random Glucose 107 MG/DL (74-106) Urine Ketones 80 OR GREATER mg/dL (NEG) Urine Squamous Epithelial > 8 /hpf (0-5) Cells Urine Mucus FEW /lpf (OCC) Chloride Level 109 MEQ/L (98-107) Blood Urea Nitrogen 5 MG/DL (7-18) Calcium Level 8.2 MG/DL (8.5-10.1) Imaging Last Impressions Head CT 10/18/16 0000 Signed Impressions: Service Date/Time: Tuesday, October 18, 2016 19:36 - CONCLUSION: Normal examination. Keyon Phillips MD Gastric Emptying Nuclear Medicine 10/18/16 0000 Signed Impressions: Service Date/Time: Tuesday, October 18, 2016 13:09 - CONCLUSION: Normal study Keyon Phillips MD Abdomen X-Ray 10/17/16 0000 Signed Impressions: Service Date/Time: October 17:02 - CONCLUSION: Normal examination. Gabe Kerns MD Hospital Course 31-year-old female with known history of recurrent nausea and vomiting. Presented to hospital again because of nausea and vomiting. Patient was previously admitted in the hospital 1 day prior for same symptoms. At that time patient was treated with Compazine and she tolerated 2 meals and wanted to go home. Patient was discharged home, however she presented back to the hospital the next day because she was having nausea vomiting again. The patient was given medication merchant department and it was indicated that patient is doing rather dramatic retching in the room without any vomitus. The patient was given IV fluids and planning discharge home, however patient refused to be discharged. Patient was admitted the hospital she underwent full examination with gastric imaging study which was normal, CT the brain which was normal, abdominal x-ray which did not indicate any acute abnormality. Patient will continue IV fluids, antiemetics. Patient did have some loose stools this morning likely secondary to the gastric emptying study. Patient clinically improved at this time and she wants to go home. Will plan discharge accordingly. Pt Condition on Discharge: Stable Discharge Disposition: Discharge Home Discharge Time: > 30 minutes Discharge Instructions DIET: Follow Instructions for: As Tolerated, No Restrictions Activities you can perform: Regular-No Restrictions Activities to Avoid: Driving Follow up Referrals: PCP Follow-up - 1 Week New Medications: Famotidine (Famotidine) 20 Mg Tab 20 MG PO BID Manage Heartburn #60 Ref 0 TAB Additional Information Written by Fitz Sanches, acting as scribe for Dr. Kirk on 10/19/16 at 10: 08. This note was transcribed by scribe Fitz Sanches,. I, Dr. Davie Kirk personally performed the history, physical exam, and medical decision making; and confirmed the accuracy of the information in the transcribed note. Authenticated by Dr. Davie Kirk on 10/19/16 at 13:24. Fitz Sanches Oct 19, 2016 10:10 Davie Kirk MD Oct 19, 2016 13:25
== END 2016-10-19 10:13 | disposition home or self-care (01) ==
LOC: PHED 16:28 → PHEDA 20:50 → PH3A 21:51
PROVIDERS: ADMIT Internal Medicine; ATTEND Internal Medicine
DX: R11.2 Nausea with vomiting, unspecified (principal); K59.09 Other constipation; R03.0 Elevated blood-pressure reading, without diagnosis of hypertension; D72.829 Elevated white blood cell count, unspecified; E87.6 Hypokalemia; G43.909 Migraine, unspecified, not intractable, without status migrainosus; E66.9 Obesity, unspecified; K21.9 Gastro-esophageal reflux disease without esophagitis; Z87.11 Personal history of peptic ulcer disease; Z68.38 Body mass index [BMI] 38.0-38.9, adult
CPT/HCPCS: 70450; 74020; 78264; 80048; 80053; 81001; 83690; 83735; 84703; 85025; 96361; 96374; 96375; 99285; A9541; C9113; G0378; J0780; J1200; J2060; J2405; J2765; J3480; J7030

== ENCOUNTER 2017-10-15 12:56 | Emergency (ER) | payer MEDICAID ==
[~2017-10-15] VITALS: Ht 152.4 cm; Wt 108.0 kg
[~2017-10-15 12:56] MED LIST changes: +DICY10 PO; +FAMO20TA2 PO; -PROC10TA PO
[2017-10-15 13:10] VITALS: BP 130/98; PULSE 120; RESP 18; TEMP 98.2; O2SAT 98
[2017-10-15] MEDS ORDERED: SODIUM CHLOR 0.9% 1000 ML INJ 1,000 ML IV SCH (13:22)
[2017-10-15] MEDS ORDERED: ALUMINUM/MAGNESIUM/SIMETH 30 ML CUP PO ONE (13:30)
[2017-10-15] MEDS ORDERED: SODIUM CHLORIDE 0.9% FLUSH 10 ML FLUSH IV FLUSH PRN (13:30)
[2017-10-15] MEDS ORDERED: LIDOCAINE VISCOUS 2% SOLN 15 ML UDC PO ONE (13:30)
[2017-10-15] MEDS ORDERED: PANTOPRAZOLE SODIUM 40 MG VIAL IVP ONE (13:30)
[2017-10-15] MEDS ORDERED: KETOROLAC TROMETHAMINE 30 MG/ML (IVP) VIAL IV PUSH ONE (13:30)
[2017-10-15] MEDS ORDERED: ONDANSETRON HCL 4 MG/2 ML VIAL IVP ONE (13:30)
--- NOTE | 2017-10-15 14:16 | PD ---
HPI Chief Complaint: GI Complaint Time Seen by Provider: 13:21 Travel History International Travel<30 days: No Contact w/Intl Traveler<30days: No Traveled to known affect area: No History of Present Illness HPI 32-year-old female presents to the emergency department with complaint of epigastric abdominal pain and vomiting 3 days. Says she was seen at [facility] 2 days ago and had a CT scan which showed that everything was normal. She has had chronic epigastric abdominal pain for the past 4 years and history of ulcers. Reports pink streaks in her vomitus. Says she can taste acid. Denies fever, diarrhea. Denies dysuria. Was prescribed Zofran from [facility] and has taken it prior to arrival with no relief of symptoms. Rates pain 910. Describes it as pulsating, sharp, stabbing pain. No known aggravating or relieving factors. Denies history of abdominal surgeries, except for C-sections. No primary care provider. No known allergies. Has not followed up with any tinner helper in the past 4 years. History of ulcers. Denies other significant past medical history. Has no other medical complaints. No other modifying factors or associated signs and symptoms. PFSH Past Medical History Anxiety: Yes Depression: No Cancer: No Cardiovascular Problems: No Chemotherapy: No Cerebrovascular Accident: No Diabetes: Yes (GESTATIONAL) Diminished Hearing: No Endocrine: No Gastrointestinal Disorders: Yes (diarrhea 3 days ago- no recent episodes) GERD: Yes Genitourinary: No Headaches: Yes Hiatal Hernia: No Immune Disorder: No Kidney Stones: Yes (at age less than 10) Musculoskeletal: No Neurologic: No Psychiatric: Yes Reproductive: No Respiratory: No Immunizations Current: Yes Migraines: Yes Radiation Therapy: No Seizures: No Ulcer: Yes ?: Not : 4 Para: 2 Miscarriage: 1 : 1 Past Surgical History Abdominal Surgery: No Cardiac Surgery: No Section: Yes (X 1) Ear Surgery: No Eye Surgery: No Genitourinary Surgery: No Gynecologic Surgery: Yes () Oral Surgery: No Thoracic Surgery: No Other Surgery: Yes Social History Alcohol Use: Yes (occ) Tobacco Use: No Substance Use: No Allergies-Medications (Allergen,Severity, Reaction): Coded Allergies: No Known Allergies (Unverified , 10/17/16) Reported Meds & Prescriptions Reported Meds & Active Scripts Active Famotidine 20 Mg Tab 20 Mg PO BID Bentyl (Dicyclomine HCl) 10 Mg Cap 10 Mg PO TID PRN Review of Systems Except as stated in HPI: all other systems reviewed are Neg Physical Exam Narrative GENERAL: Well-nourished, well-developed patient, in no acute distress ; afebrile; crying and tearful SKIN: Warm and dry. HEAD: Atraumatic. Normocephalic. EYES: Pupils equal and round. No scleral icterus. No injection or drainage. ENT: Mucosa pink and moist. Airway patent. NECK: Trachea midline. CARDIOVASCULAR: Regular rate and rhythm. No murmur appreciated. RESPIRATORY: No accessory muscle use. Clear to auscultation. Breath sounds equal bilaterally. GASTROINTESTINAL: Abdomen soft, tenderness on palpation to epigastric region, nondistended. Hepatic and splenic margins not palpable. Bowel sounds are active 4 quadrants. Nonrigid. No rebound tenderness. No guarding. BACK: No CVA tenderness. MUSCULOSKELETAL: No obvious deformities. No clubbing. No cyanosis. No edema. NEUROLOGICAL: Awake and alert. Oriented 3. No obvious cranial nerve deficits. Motor grossly within normal limits. Normal speech. PSYCHIATRIC: Appropriate mood and affect; insight and judgment normal. Data Data Last Documented VS Vital Signs Date Time Temp Pulse Resp B/P (MAP) Pulse Ox O2 Delivery O2 Flow Rate FiO2 10/15/17 13:10 98.2 120 18 130/98 (109) 98 Orders Orders Complete Blood Count With Diff (10/15/17 13:22) Comprehensive Metabolic Panel (10/15/17 13:22) Urinalysis - C+S If Indicated (10/15/17 13:22) Iv Access Insert/Monitor (10/15/17 13:22) Ondansetron Inj (Zofran Inj) (10/15/17 13:30) Sodium Chlor 0.9% 1000 Ml Inj (Ns 1000 M (10/15/17 13:22) Sodium Chloride 0.9% Flush (Ns Flush) (10/15/17 13:30) Ed Urine Pregnancytest Poc (10/15/17 13:22) Lipase (10/15/17 13:22) Pantoprazole Inj (Protonix Inj) (10/15/17 13:30) Al-Mag Hy-Si 40-40-4 Mg/Ml Liq (Mag-Al P (10/15/17 13:30) Lidocaine 2% Viscous (Xylocaine 2% Visco (10/15/17 13:30) Ketorolac Inj (Toradol Inj) (10/15/17 13:30) Morphine Inj (Morphine Inj) (10/15/17 14:45) Ct Abd/Pel W Iv Contrast(Rout) (10/15/17 14:34) Promethazine Inj (Phenergan Inj) (10/15/17 14:45) Oral Contrast - Adult (10/15/17 14:43) Labs Laboratory Tests Test 10/15/17 13:30 10/15/17 14:45 White Blood Count 17.8 TH/MM3 Red Blood Count 5.58 MIL/MM3 Hemoglobin 14.8 GM/DL Hematocrit 44.3 % Mean Corpuscular Volume 79.4 FL Mean Corpuscular Hemoglobin 26.6 PG Mean Corpuscular Hemoglobin Concent 33.5 % Red Cell Distribution Width 13.9 % Platelet Count 278 TH/MM3 Mean Platelet Volume 10.1 FL Neutrophils (%) (Auto) 80.2 % Lymphocytes (%) (Auto) 13.1 % Monocytes (%) (Auto) 6.5 % Eosinophils (%) (Auto) 0.0 % Basophils (%) (Auto) 0.2 % Neutrophils # (Auto) 14.3 TH/MM3 Lymphocytes # (Auto) 2.3 TH/MM3 Monocytes # (Auto) 1.1 TH/MM3 Eosinophils # (Auto) 0.0 TH/MM3 Basophils # (Auto) 0.0 TH/MM3 CBC Comment DIFF FINAL Differential Comment Total Protein 8.9 GM/DL Alkaline Phosphatase 74 U/L Total Bilirubin 1.0 MG/DL [facility] Medical Decision Making Medical Screen Exam Complete: Yes Emergency Medical Condition: Yes Medical Record Reviewed: Yes Differential Diagnosis Gastroenteritis, gastritis, peptic ulcer disease, cholelithiasis, cholecystitis , cyclic vomiting disorder, narcotic seeking, malingering Narrative Course 32-year-old female with epigastric abdominal pain and vomiting 3 days. History of chronic epigastric abdominal pain. History of gastric ulcers. Was seen at [facility] 2 days ago and said she had a CT scan which was normal, per the patient. I discussed the patient with Dr. Woodson, my attending physician, and he agrees with my plan of care. CBC, CMP, lipase, UA, UPT, IV, normal saline bolus, Toradol, Protonix, Zofran, GI cocktail ordered. 1435: Patient continues to have vomiting and epigastric abdominal pain. CT abdomen/pelvis, morphine, Phenergan ordered. 1540: AMA: The risks of leaving against medical advice without further evaluation treatment were discussed with the patient. These risks include cardiac dysfunction, cardiac dysrhythmia, possible heart attack, possible stroke or . The patient indicated understanding of these risks and appeared to have the capacity to make this decision. Diagnosis Primary Impression: Left against medical advice Referrals: Machine Sander Primary Care Physician Disposition: 07 AGAINST MEDICAL ADVICE Radha Cardenas Oct 15, 2017 14:16
[2017-10-15 14:18] LABS: AUTOMATED NEUTROPHIL # 14.3 TH/MM3 (1.8-7.7); BASOPHIL % 0.2 % (0.0-2.0); HEMATOCRIT 44.3 % (35.0-46.0); HEMOGLOBIN 14.8 GM/DL (11.6-15.3); LYMPH % 13.1 % (9.0-44.0); LYMPHOCYTE # 2.3 TH/MM3 (1.0-4.8); MEAN CELL VOLUME 79.4 FL (80.0-100.0); MEAN CORPUSCULAR HEMOGLOBIN 26.6 PG (27.0-34.0); MEAN CORPUSCULAR HGB CONC 33.5 % (32.0-36.0); MEAN PLATELET VOLUME 10.1 FL (7.0-11.0); MONO % 6.5 % (0.0-8.0); MONOCYTE # 1.1 TH/MM3 (0-0.9); NEUT % 80.2 % (16.0-70.0); PLATELET COUNT 278 TH/MM3 (150-450); RED BLOOD COUNT 5.58 MIL/MM3 (4.00-5.30); RED CELL DISTRIBUTION WIDTH 13.9 % (11.6-17.2); WHITE BLOOD COUNT 17.8 TH/MM3 (4.0-11.0)
[2017-10-15 14:36] LABS: TOTAL PROTEIN 8.9 GM/DL (6.4-8.2)
[2017-10-15] MEDS ORDERED: PROMETHAZINE INJ 25 MG/ML VIAL IM ONE (14:45)
[2017-10-15] MEDS ORDERED: MORPHINE SULFATE 4 MG/ML INJ IV PUSH ONE (14:45)
[2017-10-15 15:37] LABS: BACTERIA, URINE OCC /hpf; BILIRUBIN, URINE NEG (NEG); BLOOD, URINE NEG (NEG); GLUCOSE,URINE NEG (NEG); KETONE, URINE 150 mg/dL (NEG); MUCUS URINE MANY /lpf (OCC); NITRITE,URINE NEG (NEG); SQUAMOUS EPITHELIAL CELL URINE 15 /hpf (0-5); URINE COLOR YELLOW (YELLW/STRAW); URINE LEUKOCYTE ESTERASE NEG (NEG)
[2017-10-15 16:48] LABS: ALBUMIN 3.1 GM/DL (3.4-5.0); BICARBONATE 20.3 MEQ/L (21.0-32.0); CREATININE 0.62 MG/DL (0.50-1.00)
[2017-10-15 16:54] LABS: CALCIUM 7.2 MG/DL (8.5-10.1)
[2017-10-16] MEDS ORDERED: ZOFR4TAB3 SL (12:42)
[2017-10-16] MEDS ORDERED: OMEP40CA2 PO (12:42)
== END 2017-10-15 16:01 | disposition left against medical advice (07) ==
LOC: NEPD 12:56
DX: R10.13 Epigastric pain (principal); R11.10 Vomiting, unspecified; F41.9 Anxiety disorder, unspecified; E11.9 Type 2 diabetes mellitus without complications; K21.9 Gastro-esophageal reflux disease without esophagitis; Z87.442 Personal history of urinary calculi; Z79.899 Other long term (current) drug therapy
CPT/HCPCS: 80053; 81001; 83690; 84703; 85025; 87086; 96374; 96375; 99284; C9113; J1885; J2405; J7030

== ENCOUNTER 2017-10-16 09:23 | Emergency (ER) | payer MEDICAID ==
[~2017-10-16] VITALS: Ht 165.1 cm; Wt 106.0 kg
[2017-10-16 09:27] VITALS: BP 171/118; PULSE 88; RESP 16; TEMP 99.3; O2SAT 98
[2017-10-16] MEDS ORDERED: ONDANSETRON HCL 4 MG/2 ML VIAL ONE (10:10)
[2017-10-16] MEDS ORDERED: SODIUM CHLOR 0.9% 1000 ML INJ 1,000 ML IV SCH ×2 (10:18)
--- NOTE | 2017-10-16 10:24 | PD ---
HPI Chief Complaint: Abdominal Pain Time Seen by Provider: 10:15 Travel History International Travel<30 days: No Contact w/Intl Traveler<30days: No Traveled to known affect area: No History of Present Illness HPI This 32-year-old female is complaining of epigastric pain. She has had pain like this before related to ulcers. She says she has not been able to afford medication she is supposed to take for her ulcers. She having a constant epigastric pain associated with vomiting. She drinks occasionally. Says the pain is quite severe. She has had persistent vomiting she had similar episode a year ago which was attributed to ulcers. She has been having the pain for 5 days PFSH Past Medical History Anxiety: Yes Depression: No Cancer: No Cardiovascular Problems: No Chemotherapy: No Cerebrovascular Accident: No Diabetes: No (GESTATIONAL) Diminished Hearing: No Endocrine: No Gastrointestinal Disorders: Yes GERD: Yes Genitourinary: No Headaches: Yes Hiatal Hernia: No Immune Disorder: No Kidney Stones: Yes (at age less than 10) Musculoskeletal: No Neurologic: No Psychiatric: Yes Reproductive: No Respiratory: No Immunizations Current: Yes Migraines: Yes Radiation Therapy: No Seizures: No Ulcer: Yes Tetanus Vaccination: Unknown Influenza Vaccination: No ?: Not LMP: 09/26/17 : 4 Para: 2 Miscarriage: 1 : 1 Past Surgical History Abdominal Surgery: No Cardiac Surgery: No Section: Yes (X 1) Ear Surgery: No Eye Surgery: No Genitourinary Surgery: No Gynecologic Surgery: Yes () Oral Surgery: No Thoracic Surgery: No Other Surgery: Yes Social History Alcohol Use: Yes (occas beer, wine , mix drinks) Tobacco Use: No Substance Use: No Allergies-Medications (Allergen,Severity, Reaction): Coded Allergies: No Known Allergies (Unverified Adverse Reaction, Unknown, 10/16/17) Reported Meds & Prescriptions Reported Meds & Active Scripts Active No Active Prescriptions or Reported Medications Review of Systems General / Constitutional: No: Fever, Chills Eyes: No: Diploplia, Blurred Vision HENT: No: Headaches Cardiovascular: No: Chest Pain or Discomfort Respiratory: No: Cough, Shortness of Breath Gastrointestinal: Positive: Vomiting, Abdominal Pain Genitourinary: No: Urgency, Frequency Musculoskeletal: No: Myalgias, Arthralgias Skin: No Rash, No Itching Endocrine: No: Heat Intolerance, Cold Intolerance Hematologic/Lymphatic: No: Easy Bruising Physical Exam Narrative GENERAL well-developed female. She is vomiting on arrival SKIN: Focused skin assessment warm/dry. HEAD: Atraumatic. Normocephalic. EYES: Pupils equal and round. No scleral icterus. No injection or drainage. ENT: No nasal bleeding or discharge. Mucous membranes pink and moist. NECK: Trachea midline. No JVD. CARDIOVASCULAR: Regular rate and rhythm. No murmur appreciated. RESPIRATORY: No accessory muscle use. Clear to auscultation. Breath sounds equal bilaterally. GASTROINTESTINAL: Abdomen soft, there is epigastric tenderness, nondistended. Hepatic and splenic margins not palpable. MUSCULOSKELETAL: No obvious deformities. No clubbing. No cyanosis. No edema. NEUROLOGICAL: Awake and alert. No obvious cranial nerve deficits. Motor grossly within normal limits. Normal speech. PSYCHIATRIC: Appropriate mood and affect; insight and judgment normal. Data Data Last Documented VS Vital Signs Date Time Temp Pulse Resp B/P (MAP) Pulse Ox O2 Delivery O2 Flow Rate FiO2 10/16/17 11:39 64 16 148/71 (96) 95 Room Air 10/16/17 09:27 99.3 Orders Orders Ondansetron Inj (Zofran Inj) (10/16/17 10:10) Complete Blood Count With Diff (10/16/17 10:18) Comprehensive Metabolic Panel (10/16/17 10:18) Lipase (10/16/17 10:18) Urinalysis - C+S If Indicated (10/16/17 10:18) Iv Access Insert/Monitor (10/16/17 10:18) Ecg Monitoring (10/16/17 10:18) Oximetry (10/16/17 10:18) Hydromorphone Pf Inj (Dilaudid Pf Inj) (10/16/17 10:30) Ondansetron Inj (Zofran Inj) (10/16/17 10:30) Sodium Chlor 0.9% 1000 Ml Inj (Ns 1000 M (10/16/17 10:18) Sodium Chlor 0.9% 1000 Ml Inj (Ns 1000 M (10/16/17 10:18) Sodium Chloride 0.9% Flush (Ns Flush) (10/16/17 10:30) Pantoprazole Inj (Protonix Inj) (10/16/17 10:30) Ct Abd/Pel W/O Iv Contrast (10/16/17 10:18) Prochlorperazine Inj (Compazine Inj) (10/16/17 11:00) Diphenhydramine Inj (Benadryl Inj) (10/16/17 11:00) Lorazepam Inj (Ativan Inj) (10/16/17 11:00) Potassium Chlor 20 Meq Premix (Kcl 20 Me (10/16/17 11:30) Labs Laboratory Tests Test 10/16/17 10:20 10/16/17 10:45 White Blood Count 14.8 TH/MM3 Red Blood Count 5.68 MIL/MM3 Hemoglobin 14.8 GM/DL Hematocrit 45.1 % Mean Corpuscular Volume 79.5 FL Mean Corpuscular Hemoglobin 26.1 PG Mean Corpuscular Hemoglobin Concent 32.8 % Red Cell Distribution Width 12.9 % Platelet Count 256 TH/MM3 Mean Platelet Volume 9.9 FL Neutrophils (%) (Auto) 74.6 % Lymphocytes (%) (Auto) 14.4 % Monocytes (%) (Auto) 8.4 % Eosinophils (%) (Auto) 0.5 % Basophils (%) (Auto) 2.1 % Neutrophils # (Auto) 11.1 TH/MM3 Lymphocytes # (Auto) 2.1 TH/MM3 Monocytes # (Auto) 1.2 TH/MM3 Eosinophils # (Auto) 0.1 TH/MM3 Basophils # (Auto) 0.3 TH/MM3 CBC Comment DIFF FINAL Differential Comment Blood Urea Nitrogen 11 MG/DL Creatinine 0.79 MG/DL Random Glucose 131 MG/DL Total Protein 8.6 GM/DL Albumin 4.0 GM/DL Calcium Level 9.1 MG/DL Alkaline Phosphatase 82 U/L Aspartate Amino Transf (AST/SGOT) 31 U/L Alanine Aminotransferase (ALT/SGPT) 40 U/L Total Bilirubin 1.1 MG/DL Sodium Level 132 MEQ/L Potassium Level 2.9 MEQ/L Chloride Level 97 MEQ/L Carbon Dioxide Level 23.9 MEQ/L Anion Gap 11 MEQ/L Estimat Glomerular Filtration Rate 85 ML/MIN Lipase 120 U/L Urine Collection Type CLEAN CATCH Urine Color YELLOW Urine Turbidity CLEAR Urine pH 8.0 Urine Specific [place] 1.020 Urine Protein NEG mg/dL Urine Glucose (UA) NEG mg/dL Urine Ketones 80 OR GREATER mg/dL Urine Occult Blood NEG Urine Nitrite NEG Urine Bilirubin NEG Urine Urobilinogen 0.2 MG/DL Urine Leukocyte Esterase NEG Urine WBC 0-2 /hpf Urine Squamous Epithelial Cells 0-5 /hpf Microscopic Urinalysis Comment CULT NOT INDICATED Urine Collection Time 10:45 MDM Medical Decision Making Medical Screen Exam Complete: Yes Emergency Medical Condition: Yes Medical Record Reviewed: Yes Differential Diagnosis Differential includes bowel obstruction, gastritis, ulcer disease Narrative Course CT scan is negative for bowel obstruction. Patient has been given IV fluids and antiemetics and feels improved. She will be released with prescriptions for Zofran and Prilosec Diagnosis Primary Impression: Acute gastritis Scripts Ondansetron Odt (Zofran Odt) 4 Mg Tab 4 MG SL Q6HR Y for Nausea/Vomiting, #10 TAB 0 Refills Prov: Domingo Hogan MD 10/16/17 Omeprazole (Omeprazole) 40 Mg Cap 40 MG PO DAILY, #30 CAP 0 Refills Prov: Domingo Hogan MD 10/16/17 Disposition: 01 DISCHARGE HOME Condition: Stable Domingo Hogan MD Oct 16, 2017 10:24
[2017-10-16] MEDS ORDERED: HYDROmorphone HCL PF 2 MG/ML VIAL IVS ONE (10:30)
[2017-10-16] MEDS ORDERED: PANTOPRAZOLE SODIUM 40 MG VIAL IV PUSH ONE (10:30)
[2017-10-16] MEDS ORDERED: ONDANSETRON HCL 4 MG/2 ML VIAL IVP ONE (10:30)
[2017-10-16] MEDS ORDERED: SODIUM CHLORIDE 0.9% FLUSH 10 ML FLUSH IV FLUSH PRN (10:30)
[2017-10-16 10:34] LABS: AUTOMATED NEUTROPHIL # 11.1 TH/MM3 (1.8-7.7); BASOPHIL # 0.3 TH/MM3 (0-0.2); BASOPHIL % 2.1 % (0.0-2.0); EOSINOPHIL # 0.1 TH/MM3 (0-0.4); EOSINOPHIL % 0.5 % (0.0-4.0); HEMATOCRIT 45.1 % (35.0-46.0); HEMOGLOBIN 14.8 GM/DL (11.6-15.3); LYMPH % 14.4 % (9.0-44.0); LYMPHOCYTE # 2.1 TH/MM3 (1.0-4.8); MEAN CELL VOLUME 79.5 FL (80.0-100.0); MEAN CORPUSCULAR HEMOGLOBIN 26.1 PG (27.0-34.0); MEAN CORPUSCULAR HGB CONC 32.8 % (32.0-36.0); MEAN PLATELET VOLUME 9.9 FL (7.0-11.0); MONO % 8.4 % (0.0-8.0); MONOCYTE # 1.2 TH/MM3 (0-0.9); NEUT % 74.6 % (16.0-70.0); PLATELET COUNT 256 TH/MM3 (150-450); RED BLOOD COUNT 5.68 MIL/MM3 (4.00-5.30); RED CELL DISTRIBUTION WIDTH 12.9 % (11.6-17.2); WHITE BLOOD COUNT 14.8 TH/MM3 (4.0-11.0)
[2017-10-16 10:42] VITALS: BP 158/113; PULSE 90; RESP 18; O2SAT 100
[2017-10-16 10:43] VITALS: RESP 18; O2SAT 100
[2017-10-16] MEDS ORDERED: PROCHLORPERAZINE INJ 10 MG/2 ML VIAL IV PUSH ONE (11:00)
[2017-10-16] MEDS ORDERED: diphenhydrAMINE HCL 50 MG/ML VIAL IV PUSH ONE (11:00)
[2017-10-16] MEDS ORDERED: LORazepam 2 MG/ML VIAL IV PUSH ONE (11:00)
[2017-10-16 11:02] LABS: ALKALINE PHOSPHATASE 82 U/L (45-117); ALT (GPT) 40 U/L (10-53); AST (GOT) 31 U/L (15-37); BICARBONATE 23.9 MEQ/L (21.0-32.0); BLOOD UREA NITROGEN 11 MG/DL (7-18); CALCIUM 9.1 MG/DL (8.5-10.1); CHLORIDE 97 MEQ/L (98-107); CREATININE 0.79 MG/DL (0.50-1.00); GLOMERULAR FILTRATION RATE 85 ML/MIN (>89); GLUCOSE,RANDOM 131 MG/DL (74-106); SODIUM (NA) 132 MEQ/L (136-145); TOTAL BILIRUBIN ADULT 1.1 MG/DL (0.2-1.0); TOTAL PROTEIN 8.6 GM/DL (6.4-8.2)
[2017-10-16 11:05] LABS: BILIRUBIN, URINE NEG (NEG); BLOOD, URINE NEG (NEG); GLUCOSE,URINE NEG (NEG); KETONE, URINE 80 OR GREATER mg/dL (NEG); NITRITE,URINE NEG (NEG); URINE COLOR YELLOW (YELLW/STRAW); URINE LEUKOCYTE ESTERASE NEG (NEG)
--- NOTE | 2017-10-16 11:11 | RADRPT ---
EXAM DATE/TIME: 10/16/2017 10:48 [facility] COMPARISON: CT ABDOMEN & PELVIS W CONTRAST, April 01, 2016, 21:06. INDICATIONS : Epigastric pain. Nausea and vomiting. ORAL CONTRAST: No oral contrast ingested. RADIATION DOSE: 24.59 CTDIvol (mGy) ; Patient body habitus MEDICAL HISTORY : Renal calculi. Ulcers. Gastroesophageal reflux disease.Diabetes. SURGICAL HISTORY : section. ENCOUNTER: Initial ACUITY: 4 - 6 days PAIN SCALE: 10/10 LOCATION: Epigastric. TECHNIQUE: Volumetric scanning of the abdomen and pelvis was performed. Using automated exposure control and ad justment of the mA and/or kV according to patient size, radiation dose was kept as low as reasonably achievable to obtain optimal diagnostic quality images. DICOM format image data is available electro nically for review and comparison. FINDINGS: LOWER LUNGS: The visualized lower lungs are clear. LIVER: The liver is enlarged and demonstrates diffuse fatty infiltration. There is no dilation of the biliar y tree. No calcified gallstones. SPLEEN: Normal size without lesion. PANCREAS: Within normal limits. KIDNEYS: Normal in size and shape. There is no mass, stone, or hydronephrosis. ADRENAL GLANDS: Within normal limits. VASCULAR: There is no aortic aneurysm. BOWEL/MESENTERY: Uncomplicated colonic diverticulosis is noted. The appendix is normal. ABDOMINAL WALL: Within normal limits. RETROPERITONEUM: There is no lymphadenopathy. BLADDER: No wall thickening or mass. REPRODUCTIVE: Within normal limits. INGUINAL: There is no lymphadenopathy or hernia. MUSCULOSKELETAL: Within normal limits for patient age. CONCLUSION: 1. Enlarged fatty liver. 2. Uncomplicated colonic diverticulosis. Silviano Ruiz MD on October 16, 2017 at 11:06 Board Certified Radiologist. This report was verified electronically.
[2017-10-16 11:12] LABS: SQUAMOUS EPITHELIAL CELL URINE 0-5 /hpf (0-5); WBC, URINE 0-2 /hpf (0-5)
[2017-10-16] MEDS ORDERED: POTASSIUM CHLOR 20 MEQ PREMIX 100 ML IV ONE (11:30)
[2017-10-16 11:39] VITALS: BP 148/71; PULSE 64; RESP 16; O2SAT 95
[2017-10-16] MEDS ORDERED: ZOFR4TAB3 SL (12:42)
[2017-10-16] MEDS ORDERED: OMEP40CA2 PO (12:42)
[2017-10-16 13:49] VITALS: BP 93/53; PULSE 90; RESP 16; O2SAT 98
[2017-10-17] MEDS ORDERED: PROM25TA10 PO (04:12)
[2017-10-17] MEDS ORDERED: PROM1SUP7 RECTAL (04:12)
== END 2017-10-16 13:59 | disposition home or self-care (01) ==
LOC: PHED 09:23
DX: K29.00 Acute gastritis without bleeding (principal); F41.9 Anxiety disorder, unspecified; K21.9 Gastro-esophageal reflux disease without esophagitis
CPT/HCPCS: 74176; 80053; 81001; 83690; 85025; 96361; 96365; 96366; 96375; 99284; C9113; J0780; J1170; J1200; J2060; J3480; J7030; J2405

== ENCOUNTER 2017-10-16 22:37 | Emergency (ER) | payer MEDICAID ==
[~2017-10-16] VITALS: Ht 165.1 cm; Wt 110.0 kg
[~2017-10-16 22:37] MED LIST changes: +OMEP40CA2 PO; +ZOFR4TAB3 SL
[2017-10-16 23:53] VITALS: BP 165/107; PULSE 113; RESP 20; TEMP 99.7; O2SAT 98
--- NOTE | 2017-10-17 00:59 | PD ---
HPI Chief Complaint: GI Complaint Time Seen by Provider: 00:53 Travel History International Travel<30 days: No Contact w/Intl Traveler<30days: No Traveled to known affect area: No History of Present Illness HPI 32-year-old female presents to the emergency department by private transportation for complaint of severe epigastric pain 6 days associated with nausea and vomiting. Patient states she has had bilious emesis with intermittent streaks of blood. Patient does not report any melena or hematochezia. Patient's had poor oral intake secondary to marked nausea and recurrent vomiting. Patient does not report any weight loss. Patient was seen in the emergency room earlier on for same complaint received IV fluids antiemetics pain medication lab work was performed patient was identified to have hypokalemia potassium was replaced and CT abdomen pelvis revealed no acute process and no bowel obstruction. Patient was discharged with prescriptions for nausea and vomiting however patient does not have the money reportedly to afford her prescription and did not fill the prescription. Patient is continued to have nausea and vomiting throughout the day and return to the emergency department now for same complaint. Patient was diagnosed with acute gastritis. Patient has had previous remote history of peptic ulcer disease. Patient denies NSAID use. [facility] Past Medical History Narrative Medical Anxiety, migraines, (twins) Ab2; ; occasional alcohol use no tobacco use; nursing notes reviewed Anxiety: Yes Diminished Hearing: No Gastrointestinal Disorders: Yes GERD: Yes Headaches: Yes Kidney Stones: Yes (at age less than 10) Psychiatric: Yes Immunizations Current: Yes Migraines: Yes Ulcer: Yes Tetanus Vaccination: Unknown Influenza Vaccination: No ?: Not : 3 Para: 2 Miscarriage: 1 : 1 Past Surgical History Section: Yes (X 1 TWINS) Gynecologic Surgery: Yes () Other Surgery: Yes Social History Alcohol Use: Yes (occas beer, wine , mix drinks) Tobacco Use: No Substance Use: No Allergies-Medications (Allergen,Severity, Reaction): Coded Allergies: No Known Allergies (Unverified Adverse Reaction, Unknown, 10/16/17) Reported Meds & Prescriptions Reported Meds & Active Scripts Active Zofran Odt (Ondansetron Odt) 4 Mg Tab 4 Mg SL Q6HR PRN Omeprazole 40 Mg Cap 40 Mg PO DAILY Review of Systems Except as stated in HPI: all other systems reviewed are Neg General / Constitutional: No: Fever HENT: No: Congestion Cardiovascular: No: Chest Pain or Discomfort Respiratory: No: Shortness of Breath Gastrointestinal: Positive: Nausea, Vomiting, Abdominal Pain (Epigastric pain) , No: Diarrhea Genitourinary: No: Dysuria, Decreased Urinary Output Musculoskeletal: No: Myalgias, Arthralgias Skin: No Rash Neurologic: No: Weakness Psychiatric: Positive: Anxiety Endocrine: No: Heat Intolerance, Cold Intolerance Hematologic/Lymphatic: No: Easy Bruising Physical Exam Narrative GENERAL: Well-developed well-nourished female in obvious discomfort crying intermittently attempting to vomit SKIN: Warm and dry. HEAD: Normocephalic. EYES: No scleral icterus. No injection or drainage. NECK: Supple, trachea midline. No JVD or lymphadenopathy. CARDIOVASCULAR: Regular rate and rhythm without murmurs, gallops, or rubs. RESPIRATORY: Breath sounds equal bilaterally. No accessory muscle use. GASTROINTESTINAL: Abdomen soft, diffusely tender primarily epigastric with voluntary guarding or rebound nondistended. MUSCULOSKELETAL: No cyanosis, or edema. BACK: Nontender without obvious deformity. No CVA tenderness. Data Data Last Documented VS Vital Signs Date Time Temp Pulse Resp B/P (MAP) Pulse Ox O2 Delivery O2 Flow Rate FiO2 10/17/17 01:55 81 16 134/67 (89) 98 Room Air 10/16/17 23:53 99.7 Orders Orders Complete Blood Count With Diff (10/17/17 00:54) Comprehensive Metabolic Panel (10/17/17 00:54) Lipase (10/17/17 00:54) Us Abdomen Gallbladder (10/17/17 ) Iv Access Insert/Monitor (10/17/17 00:54) Ecg Monitoring (10/17/17 00:54) Oximetry (10/17/17 00:54) Sodium Chloride 0.9% Flush (Ns Flush) (10/17/17 01:00) Chest, Single Ap (10/17/17 00:54) Ed Urine Pregnancytest Poc (10/17/17 00:54) Sodium Chlor 0.9% 1000 Ml Inj (Ns 1000 M (10/17/17 01:00) Ondansetron Inj (Zofran Inj) (10/17/17 01:00) Magnesium (Mg) (10/17/17 00:54) Hydromorphone Pf Inj (Dilaudid Pf Inj) (10/17/17 01:00) Pantoprazole Inj (Protonix Inj) (10/17/17 01:00) Potassium Chlor 10 Meq Premix (Kcl 10 Me (10/17/17 02:00) Potassium Chlor 10 Meq Premix (Kcl 10 Me (10/17/17 02:00) Urinalysis - C+S If Indicated (10/17/17 01:55) Metoclopramide Inj (Reglan Inj) (10/17/17 02:00) Promethazine Inj (Phenergan Inj) (10/17/17 03:00) Sodium Chlor 0.9% 1000 Ml Inj (Ns 1000 M (10/17/17 03:00) Labs Laboratory Tests Test 10/17/17 00:00 10/17/17 00:50 Urine Color YELLOW Urine Turbidity CLEAR Urine pH 6.5 Urine Specific Viola 1.015 Urine Protein NEG mg/dL Urine Glucose (UA) NEG mg/dL Urine Ketones 80 OR GREATER mg/dL Urine Occult Blood NEG Urine Nitrite NEG Urine Bilirubin NEG Urine Urobilinogen 0.2 MG/DL Urine Leukocyte Esterase NEG Urine RBC 0-2 /hpf Urine WBC 0-2 /hpf Urine Squamous Epithelial Cells 0-5 /hpf Urine Bacteria NONE /hpf Microscopic Urinalysis Comment CULT NOT INDICATED White Blood Count 17.3 TH/MM3 Red Blood Count 5.17 MIL/MM3 Hemoglobin 13.6 GM/DL Hematocrit 41.0 % Mean Corpuscular Volume 79.3 FL Mean Corpuscular Hemoglobin 26.3 PG Mean Corpuscular Hemoglobin Concent 33.2 % Red Cell Distribution Width 13.0 % Platelet Count 229 TH/MM3 Mean Platelet Volume 9.6 FL Neutrophils (%) (Auto) 75.8 % Lymphocytes (%) (Auto) 17.2 % Monocytes (%) (Auto) 4.4 % Eosinophils (%) (Auto) 0.2 % Basophils (%) (Auto) 2.4 % Neutrophils # (Auto) 13.1 TH/MM3 Lymphocytes # (Auto) 3.0 TH/MM3 Monocytes # (Auto) 0.8 TH/MM3 Eosinophils # (Auto) 0.0 TH/MM3 Basophils # (Auto) 0.4 TH/MM3 CBC Comment DIFF FINAL Differential Comment Blood Urea Nitrogen 10 MG/DL Creatinine 0.75 MG/DL Random Glucose 120 MG/DL Total Protein 7.8 GM/DL Albumin 3.7 GM/DL Calcium Level 8.6 MG/DL Magnesium Level 2.2 MG/DL Alkaline Phosphatase 72 U/L Aspartate Amino Transf (AST/SGOT) 26 U/L Alanine Aminotransferase (ALT/SGPT) 39 U/L Total Bilirubin 0.6 MG/DL Sodium Level 133 MEQ/L Potassium Level 3.1 MEQ/L Chloride Level 100 MEQ/L Carbon Dioxide Level 24.0 MEQ/L Anion Gap 9 MEQ/L Estimat Glomerular Filtration Rate 91 ML/MIN Lipase 119 U/L [facility] Medical Decision Making Medical Screen Exam Complete: Yes Emergency Medical Condition: Yes Medical Record Reviewed: Yes Interpretation(s) Last Impressions Chest X-Ray 10/17/17 0054 Signed Impressions: Service Date/Time: Tuesday, October 17, 2017 01:38 - CONCLUSION: No acute disease. Keyon Phillips MD Gall Bladder Ultrasound 10/17/17 0000 Signed Impressions: Service Date/Time: Tuesday, October 17, 2017 01:17 - CONCLUSION: Hepatic steatosis. No gallstones Keyon Phillips MD CBC & BMP Diagram 10/17/17 00:50 Total Protein 7.8 #, Albumin 3.7, Calcium Level 8.6, Magnesium Level 2.2, Alkaline Phosphatase 72, Aspartate Amino Transf (AST/SGOT) 26, Alanine Aminotransferase (ALT/SGPT) 39, Total Bilirubin 0.6 Vital Signs Date Time Temp Pulse Resp B/P (MAP) Pulse Ox O2 Delivery O2 Flow Rate FiO2 10/17/17 01:55 81 16 134/67 (89) 98 Room Air 10/17/17 01:15 72 97 Room Air 10/16/17 23:53 99.7 113 20 165/107 (126) 98 Differential Diagnosis Gastroenteritis, pancreatitis, cholecystitis, gastritis/peptic ulcer disease, intractable vomiting, post cannabis hyperemesis, electrolyte disturbance Narrative Course Patient placed on monitor with IV access specimens collections of resulting patient administered IV fluid bolus along with Zofran Patient continues complain of nausea additional Zofran administered Reglan administered for control of nausea vomiting Patient informed of imaging results and lab results Patient having another episode of vomiting Phenergan 25 mg IM administered Patient given potassium replacement Is 4:12 AM patient reports that she feels well looks well-hydrated and is stable for outpatient management Diagnosis Primary Impression: Gastritis Qualified Codes: K29.00 - Acute gastritis without bleeding Additional Impressions: Nausea & vomiting Hypokalemia Referrals: Primary Care Physician call for appointment Patient Instructions: General Instructions Additional Instructions: Increase fluid hydration Add potassium to dietary intake Take Phenergan as prescribed as needed for nausea and/or vomiting Take Zantac 150 twice daily for 14 days Follow-up with primary care provider Return to the emergency department for concerns or change in condition Take acetaminophen/Tylenol as needed for fever 100.4F or greater and/or for minor pain Do not use nonsteroidal anti-inflammatory medication such as ibuprofen/Advil/ Motrin or Aleve/Naprosyn/naproxen Med/Other Pt SpecificInfo: Prescription(s) given Scripts Promethazine Supp (Phenergan Supp) 25 Mg Supp 25 MG RECTAL Q6H Y for NAUSEA OR VOMITING, #7 SUPP 0 Refills Prov: Maye Carpenter MD 10/17/17 Promethazine (Phenergan) 25 Mg Tablet 25 MG PO Q6H Y for NAUSEA OR VOMITING, #7 TAB 0 Refills Prov: Maye Carpenter MD 10/17/17 Disposition: 01 DISCHARGE HOME Condition: Stable Maye Carpenter MD Oct 17, 2017 00:59
[2017-10-17] MEDS ORDERED: ONDANSETRON HCL 4 MG/2 ML VIAL IV PUSH ONE (01:00)
[2017-10-17] MEDS ORDERED: HYDROmorphone HCL PF 2 MG/ML VIAL IV PUSH ONE (01:00)
[2017-10-17] MEDS ORDERED: PANTOPRAZOLE SODIUM 40 MG VIAL IV PUSH ONE (01:00)
[2017-10-17] MEDS ORDERED: SODIUM CHLORIDE 0.9% FLUSH 10 ML FLUSH IV FLUSH PRN (01:00)
[2017-10-17] MEDS ORDERED: SODIUM CHLOR 0.9% 1000 ML INJ 1,000 ML IV ONE ×2 (01:00→03:00)
[2017-10-17 01:15] VITALS: PULSE 72; O2SAT 97
[2017-10-17 01:19] LABS: AUTOMATED NEUTROPHIL # 13.1 TH/MM3 (1.8-7.7); BASOPHIL # 0.4 TH/MM3 (0-0.2); BASOPHIL % 2.4 % (0.0-2.0); EOSINOPHIL % 0.2 % (0.0-4.0); HEMOGLOBIN 13.6 GM/DL (11.6-15.3); LYMPH % 17.2 % (9.0-44.0); MEAN CELL VOLUME 79.3 FL (80.0-100.0); MEAN CORPUSCULAR HEMOGLOBIN 26.3 PG (27.0-34.0); MEAN CORPUSCULAR HGB CONC 33.2 % (32.0-36.0); MEAN PLATELET VOLUME 9.6 FL (7.0-11.0); MONO % 4.4 % (0.0-8.0); MONOCYTE # 0.8 TH/MM3 (0-0.9); NEUT % 75.8 % (16.0-70.0); PLATELET COUNT 229 TH/MM3 (150-450); RED BLOOD COUNT 5.17 MIL/MM3 (4.00-5.30); WHITE BLOOD COUNT 17.3 TH/MM3 (4.0-11.0)
[2017-10-17 01:25] LABS: CHLORIDE 100 MEQ/L (98-107); SODIUM (NA) 133 MEQ/L (136-145)
[2017-10-17 01:29] LABS: ALBUMIN 3.7 GM/DL (3.4-5.0); BLOOD UREA NITROGEN 10 MG/DL (7-18); CALCIUM 8.6 MG/DL (8.5-10.1); GLUCOSE,RANDOM 120 MG/DL (74-106); MAGNESIUM 2.2 MG/DL (1.5-2.5)
[2017-10-17 01:32] LABS: ALT (GPT) 39 U/L (10-53); AST (GOT) 26 U/L (15-37); CREATININE 0.75 MG/DL (0.50-1.00); GLOMERULAR FILTRATION RATE 91 ML/MIN (>89)
[2017-10-17 01:34] LABS: TOTAL BILIRUBIN ADULT 0.6 MG/DL (0.2-1.0); TOTAL PROTEIN 7.8 GM/DL (6.4-8.2)
[2017-10-17 01:35] LABS: ALKALINE PHOSPHATASE 72 U/L (45-117)
--- NOTE | 2017-10-17 01:53 | RADRPT ---
EXAM DATE/TIME: 10/17/2017 01:17 [facility] COMPARISON: CT ABDOMEN & PELVIS W/O CONTRAST, October 16, 2017, 10:48. INDICATIONS : Right upper quadrant pain. MEDICAL HISTORY : Renal calculi. Migraines. Ulcer. GERD. Gestational diabetes. Anxiety. SURGICAL HISTORY : section. ENCOUNTER: Initial ACUITY: 4-6 days PAIN SCORE: 9/10 LOCATION: Right upper quadrant MEASUREMENTS: LIVER: 18.7 cm length COMMON DUCT: 5 mm RIGHT KIDNEY: 13.5 x 6.3 x 4.8 cm FINDINGS: LIVER: Diffusely increased echogenicity consistent with steatosis. Areas of focal sparing in the gallbladder fossa. COMMON DUCT: No intraluminal mass or stone visualized. GALLBLADDER: Contains no stones, demonstrates no wall thickening or pericholecystic fluid. PANCREAS: The visualized portions are within normal limits. RIGHT KIDNEY: No evidence of hydronephrosis, stone, or mass. CONCLUSION: Hepatic steatosis. No gallstones Keyon Phillips MD on October 17, 2017 at 1:46 Board Certified Radiologist. This report was verified electronically.
[2017-10-17 01:55] VITALS: BP 134/67; PULSE 81; RESP 16; O2SAT 98
[2017-10-17] MEDS ORDERED: METOCLOPRAMIDE HCL 10 MG/2 ML VIAL IV PUSH ONE (02:00)
[2017-10-17] MEDS ORDERED: POTASSIUM CHLOR 10 MEQ PREMIX 100 ML IV ONE ×2 (02:00)
[2017-10-17 02:06] LABS: BILIRUBIN, URINE NEG (NEG); BLOOD, URINE NEG (NEG); GLUCOSE,URINE NEG (NEG); KETONE, URINE 80 OR GREATER mg/dL (NEG); NITRITE,URINE NEG (NEG); PH, URINE 6.5 (5.0-8.5); URINE COLOR YELLOW (YELLW/STRAW); URINE LEUKOCYTE ESTERASE NEG (NEG)
[2017-10-17 02:13] LABS: RBC, URINE 0-2 /hpf (0-3); SQUAMOUS EPITHELIAL CELL URINE 0-5 /hpf (0-5); WBC, URINE 0-2 /hpf (0-5)
--- NOTE | 2017-10-17 02:17 | RADRPT ---
EXAM DATE/TIME: 10/17/2017 01:38 [facility] COMPARISON: CHEST SINGLE AP, February 21, 2016, 13:56. CHEST SINGLE AP, April 02, 2016, 1:15. INDICATIONS : Chest discomfort, vomiting for 1 week MEDICAL HISTORY : None. SURGICAL HISTORY : None. ENCOUNTER: Initial ACUITY: 1 week PAIN SCORE: 0/10 LOCATION: Bilateral chest FINDINGS: A single view of the chest demonstrates the lungs to be symmetrically aerated without evidence of mas s, infiltrate or effusion. The cardiomediastinal contours are unremarkable. Osseous structures are intact. There is a circumscribed sclerotic focus in the lateral aspect of the proximal left humeral n hillary which appears to have been present previously. CONCLUSION: No acute disease. Keyon Phillips MD on October 17, 2017 at 1:56 Board Certified Radiologist. This report was verified electronically.
[2017-10-17] MEDS ORDERED: PROMETHAZINE INJ 25 MG/ML VIAL IM ONE (03:00)
[2017-10-17 04:06] VITALS: BP 123/59; PULSE 83; RESP 16; O2SAT 97
[2017-10-17] MEDS ORDERED: PROM25TA10 PO (04:12)
[2017-10-17] MEDS ORDERED: PROM1SUP7 RECTAL (04:12)
== END 2017-10-17 04:30 | disposition home or self-care (01) ==
LOC: PHED 22:37
DX: K29.00 Acute gastritis without bleeding (principal); E87.6 Hypokalemia; F41.9 Anxiety disorder, unspecified; K21.9 Gastro-esophageal reflux disease without esophagitis; Z87.11 Personal history of peptic ulcer disease
CPT/HCPCS: 71045; 76705; 80053; 81001; 83690; 83735; 84703; 85025; 96361; 96365; 96366; 96372; 96375; 99285; C9113; J1170; J2405; J2550; J2765; J3480; J7030

== ENCOUNTER 2017-10-19 16:30 | Emergency (ER) | payer SELFPAY ==
[2017-10-19] VITALS (7 sets, daily range): BP systolic 120–164; BP diastolic 67–90; PULSE 82–119; RESP 16–22; TEMP 100; O2SAT 96–100
[~2017-10-19] VITALS: Ht 165.1 cm; Wt 107.0 kg
[~2017-10-19 16:30] MED LIST changes: -DICY10 PO; -FAMO20TA2 PO; +PROM1SUP7 RECTAL; +PROM25TA10 PO
[2017-10-19] MEDS ORDERED: SODIUM CHLOR 0.9% 1000 ML INJ 1,000 ML IV SCH (19:56)
[2017-10-19] MEDS ORDERED: ALUMINUM/MAGNESIUM/SIMETH 30 ML CUP PO ONE (20:00)
[2017-10-19] MEDS ORDERED: ONDANSETRON HCL 4 MG/2 ML VIAL IVP ONE (20:00)
[2017-10-19] MEDS ORDERED: PANTOPRAZOLE SODIUM 40 MG VIAL IVP ONE (20:00)
[2017-10-19] MEDS ORDERED: LIDOCAINE VISCOUS 2% SOLN 15 ML UDC PO ONE (20:00)
--- NOTE | 2017-10-19 20:15 | PD ---
HPI Chief Complaint: Abdominal Pain Time Seen by Provider: 19:42 Travel History International Travel<30 days: No Contact w/Intl Traveler<30days: No Traveled to known affect area: No History of Present Illness HPI 32yo F with PMH of GERD, gastritis here with c/o vomiting and epigastric abdominal pain for 9 days. Denies any fever, chest pain, sob, dysuria, hematuria, focal weakness or numbness. Pt was seen here on 10/16/[address] a /p that showed fatty liver and uncomplicated colonic diverticulosis. Pt again came back on 10/17/17 and had US gallbladder that was normal. Pt has been here multiple times and had been admitted for intractable vomiting last year and had negative gastric emptying test 10/2016. Pt said she had endoscopy 3 years ago and showed gastric ulcer. Pt has not follow up GI as outpatient. PFSH Past Medical History Anxiety: Yes Depression: No Cancer: No Cardiovascular Problems: No Chemotherapy: No Cerebrovascular Accident: No Diminished Hearing: No Endocrine: No Gastrointestinal Disorders: Yes GERD: Yes Genitourinary: No Headaches: Yes Hiatal Hernia: No Immune Disorder: No Implanted Vascular Access Dvce: No Kidney Stones: Yes (at age less than 10) Musculoskeletal: No Neurologic: No Psychiatric: Yes Reproductive: No Respiratory: No Immunizations Current: Yes Migraines: Yes Radiation Therapy: No Seizures: No Ulcer: Yes ?: Not LMP: 09/29/17 : 3 Para: 2 Miscarriage: 1 : 1 Past Surgical History Abdominal Surgery: No Cardiac Surgery: No Section: Yes (X 1 TWINS) Ear Surgery: No Eye Surgery: No Genitourinary Surgery: No Gynecologic Surgery: Yes () Neurologic Surgery: No Oral Surgery: No Thoracic Surgery: No Other Surgery: Yes Social History Alcohol Use: Yes (occas beer, wine , mix drinks) Tobacco Use: No Substance Use: No Allergies-Medications (Allergen,Severity, Reaction): Coded Allergies: No Known Allergies (Unverified Adverse Reaction, Unknown, 10/19/17) Reported Meds & Prescriptions Reported Meds & Active Scripts Active Phenergan (Promethazine HCl) 25 Mg Tablet 25 Mg PO Q6H PRN Zofran Odt (Ondansetron Odt) 4 Mg Tab 4 Mg SL Q6HR PRN Review of Systems Except as stated in HPI: all other systems reviewed are Neg Physical Exam Narrative GENERAL: 32yo F in mild distress. SKIN: Focused skin assessment warm/dry. HEAD: Atraumatic. Normocephalic. EYES: Pupils equal and round. No scleral icterus. No injection or drainage. ENT: No nasal bleeding or discharge. Mucous membranes pink and moist. NECK: Trachea midline. No JVD. CARDIOVASCULAR: Regular rate and rhythm. No murmur appreciated. RESPIRATORY: No accessory muscle use. Clear to auscultation. Breath sounds equal bilaterally. GASTROINTESTINAL: Abdomen soft,obese abdomen. +TTP epigastric region. No rebound tenderness or guarding. MUSCULOSKELETAL: No obvious deformities. No clubbing. No cyanosis. No edema. NEUROLOGICAL: Awake and alert. No obvious cranial nerve deficits. Motor grossly within normal limits. Normal speech. PSYCHIATRIC: Appropriate mood and affect; insight and judgment normal. Data Data Last Documented VS Vital Signs Date Time Temp Pulse Resp B/P (MAP) Pulse Ox O2 Delivery O2 Flow Rate FiO2 10/19/17 21:27 87 18 123/79 (94) 98 Room Air 10/19/17 16:55 100.0 Orders Orders Urinalysis - C+S If Indicated (10/19/17 17:03) Ed Urine Pregnancytest Poc (10/19/17 17:03) Complete Blood Count With Diff (10/19/17 19:49) Comprehensive Metabolic Panel (10/19/17 19:49) Lipase (10/19/17 19:49) Ondansetron Inj (Zofran Inj) (10/19/17 20:00) Pantoprazole Inj (Protonix Inj) (10/19/17 20:00) Sodium Chlor 0.9% 1000 Ml Inj (Ns 1000 M (10/19/17 19:56) Al-Mag Hy-Si 40-40-4 Mg/Ml Liq (Mag-Al P (10/19/17 20:00) Lidocaine 2% Viscous (Xylocaine 2% Visco (10/19/17 20:00) Chest, Single Ap (10/19/17 ) Potassium Chloride (Kcl) (10/19/17 21:15) Ondansetron Inj (Zofran Inj) (10/19/17 21:15) Labs Laboratory Tests Test 10/19/17 20:00 White Blood Count 15.5 TH/MM3 Red Blood Count 5.58 MIL/MM3 Hemoglobin 14.4 GM/DL Hematocrit 44.8 % Mean Corpuscular Volume 80.3 FL Mean Corpuscular Hemoglobin 25.8 PG Mean Corpuscular Hemoglobin Concent 32.1 % Red Cell Distribution Width 13.2 % Platelet Count 271 TH/MM3 Mean Platelet Volume 9.7 FL Neutrophils (%) (Auto) 75.7 % Lymphocytes (%) (Auto) 17.3 % Monocytes (%) (Auto) 6.0 % Eosinophils (%) (Auto) 0.3 % Basophils (%) (Auto) 0.7 % Neutrophils # (Auto) 11.8 TH/MM3 Lymphocytes # (Auto) 2.7 TH/MM3 Monocytes # (Auto) 0.9 TH/MM3 Eosinophils # (Auto) 0.0 TH/MM3 Basophils # (Auto) 0.1 TH/MM3 CBC Comment DIFF FINAL Differential Comment Urine Collection Type CLEAN CATCH Urine Color YELLOW Urine Turbidity CLEAR Urine pH 8.5 Urine Specific Harvey 1.020 Urine Protein TRACE mg/dL Urine Glucose (UA) NEG mg/dL Urine Ketones 80 OR GREATER mg/dL Urine Occult Blood NEG Urine Nitrite NEG Urine Bilirubin NEG Urine Urobilinogen 0.2 MG/DL Urine Leukocyte Esterase NEG Urine RBC 0-3 /hpf Urine Squamous Epithelial Cells 0-5 /hpf Urine Amorphous Sediment SMALL Urine Mucus OCC /lpf Microscopic Urinalysis Comment CULT NOT INDICATED Blood Urea Nitrogen 7 MG/DL Creatinine 0.57 MG/DL Random Glucose 104 MG/DL Total Protein 8.3 GM/DL Albumin 4.2 GM/DL Calcium Level 9.3 MG/DL Alkaline Phosphatase 76 U/L Aspartate Amino Transf (AST/SGOT) 20 U/L Alanine Aminotransferase (ALT/SGPT) 42 U/L Total Bilirubin 0.5 MG/DL Sodium Level 136 MEQ/L Potassium Level 2.8 MEQ/L Chloride Level 102 MEQ/L Carbon Dioxide Level 22.6 MEQ/L Anion Gap 11 MEQ/L Estimat Glomerular Filtration Rate 125 ML/MIN Lipase 100 U/L [facility] Medical Decision Making Medical Screen Exam Complete: Yes Emergency Medical Condition: Yes Differential Diagnosis Dehydration vs. hypokalemia vs. hyperemesis syndrome vs. gastritis vs. peptic ulcer disease Narrative Course 32yo F with vomiting and epigastric pain. Pt had been here a few times this week and had CT a/p and US gallbladder. Pt initially with HR 98bpm and improve after NS IVF. Temp 100F. Labs reviewed, mild leukocytosis at 15.5 which is improved from 17.3 on 10/17/17. Mild hypokalemia at 2.8 which she has always had and this is replaced by 60mEq KCl. UA showed no leukocyte. Urine negative. CXR showed no acute disease. No free air. Pt given zofran , pantoprazole and GI cocktail and said pain has improved. Nausea has also improve but wants another dose so another dose of zofran given. Pt reevaluated at bedside and is tolerating PO. Return precautions given. Diagnosis Primary Impression: Hypokalemia Additional Impression: Nausea & vomiting Qualified Codes: R11.2 - Nausea with vomiting, unspecified Patient Instructions: General Instructions Departure Forms: Tests/Procedures Additional Instructions: Please follow up with GI as outpatient. Return to the ED if symptoms worsen. Med/Other Pt SpecificInfo: Prescription(s) given Scripts Ondansetron Odt (Zofran Odt) 4 Mg Tab 4 MG SL Q12HR Y for Nausea/Vomiting, #6 TAB 0 Refills Prov: Morena Gooden DO 10/19/17 Disposition: 01 DISCHARGE HOME Condition: Stable Morena Gooden DO Oct 19, 2017 20:15
[2017-10-19 20:20] LABS: AUTOMATED NEUTROPHIL # 11.8 TH/MM3 (1.8-7.7); BASOPHIL # 0.1 TH/MM3 (0-0.2); BASOPHIL % 0.7 % (0.0-2.0); EOSINOPHIL % 0.3 % (0.0-4.0); HEMATOCRIT 44.8 % (35.0-46.0); HEMOGLOBIN 14.4 GM/DL (11.6-15.3); LYMPH % 17.3 % (9.0-44.0); LYMPHOCYTE # 2.7 TH/MM3 (1.0-4.8); MEAN CELL VOLUME 80.3 FL (80.0-100.0); MEAN CORPUSCULAR HEMOGLOBIN 25.8 PG (27.0-34.0); MEAN CORPUSCULAR HGB CONC 32.1 % (32.0-36.0); MEAN PLATELET VOLUME 9.7 FL (7.0-11.0); MONOCYTE # 0.9 TH/MM3 (0-0.9); NEUT % 75.7 % (16.0-70.0); PLATELET COUNT 271 TH/MM3 (150-450); RED BLOOD COUNT 5.58 MIL/MM3 (4.00-5.30); RED CELL DISTRIBUTION WIDTH 13.2 % (11.6-17.2); WHITE BLOOD COUNT 15.5 TH/MM3 (4.0-11.0)
[2017-10-19 20:26] LABS: BILIRUBIN, URINE NEG (NEG); BLOOD, URINE NEG (NEG); GLUCOSE,URINE NEG (NEG); KETONE, URINE 80 OR GREATER mg/dL (NEG); NITRITE,URINE NEG (NEG); PH, URINE 8.5 (5.0-8.5); URINE COLOR YELLOW (YELLW/STRAW); URINE LEUKOCYTE ESTERASE NEG (NEG)
[2017-10-19 20:47] LABS: MUCUS URINE OCC /lpf (OCC)
[2017-10-19 20:48] LABS: AMORPHOUS SEDIMENT, URINE SMALL; RBC, URINE 0-3 /hpf (0-3); SQUAMOUS EPITHELIAL CELL URINE 0-5 /hpf (0-5)
[2017-10-19 21:00] LABS: ALBUMIN 4.2 GM/DL (3.4-5.0); ALKALINE PHOSPHATASE 76 U/L (45-117); ALT (GPT) 42 U/L (10-53); AST (GOT) 20 U/L (15-37); BICARBONATE 22.6 MEQ/L (21.0-32.0); BLOOD UREA NITROGEN 7 MG/DL (7-18); CALCIUM 9.3 MG/DL (8.5-10.1); CHLORIDE 102 MEQ/L (98-107); CREATININE 0.57 MG/DL (0.50-1.00); GLOMERULAR FILTRATION RATE 125 ML/MIN (>89); GLUCOSE,RANDOM 104 MG/DL (74-106); SODIUM (NA) 136 MEQ/L (136-145); TOTAL BILIRUBIN ADULT 0.5 MG/DL (0.2-1.0); TOTAL PROTEIN 8.3 GM/DL (6.4-8.2)
[2017-10-19] MEDS ORDERED: POTASSIUM CHLORIDE 20 MEQ CONTROLLED RELEASE TAB PO ONE (21:15)
[2017-10-19] MEDS ORDERED: ONDANSETRON HCL 4 MG/2 ML VIAL IV PUSH ONE (21:15)
--- NOTE | 2017-10-19 21:24 | RADRPT ---
EXAM DATE/TIME: 10/19/2017 20:39 [facility] COMPARISON: CHEST SINGLE AP, October 17, 2017, 1:38. INDICATIONS : Patient states that she has not been able to keep solid food down in 2 weeks. MEDICAL HISTORY : Renal calculi. Ulcers. Gastroesophageal reflux disease.Diabetes SURGICAL HISTORY : section. ENCOUNTER: Initial ACUITY: 2 weeks PAIN SCORE: 7/10 LOCATION: Bilateral upper abdominal FINDINGS: A single view of the chest demonstrates the lungs to be symmetrically aerated without evidence of mas s, infiltrate or effusion. The cardiomediastinal contours are unremarkable. Osseous structures are intact. CONCLUSION: No acute disease. Keyon Augustin MD on October 19, 2017 at 21:22 Board Certified Radiologist. This report was verified electronically.
[2017-10-19] MEDS ORDERED: ZOFR4TAB3 SL (21:50)
== END 2017-10-19 22:48 | disposition home or self-care (01) ==
LOC: PHED 16:30
DX: E87.6 Hypokalemia (principal); R11.2 Nausea with vomiting, unspecified; R10.13 Epigastric pain; K21.9 Gastro-esophageal reflux disease without esophagitis; K57.10 Diverticulosis of small intestine without perforation or abscess without bleeding; K76.0 Fatty (change of) liver, not elsewhere classified; F41.9 Anxiety disorder, unspecified; Z87.442 Personal history of urinary calculi
CPT/HCPCS: 71045; 80053; 81001; 83690; 84703; 85025; 96361; 96374; 96375; 96376; 99284; C9113; J2405; J7030

== ENCOUNTER 2017-10-21 10:39 | Emergency (ER) | payer MEDICAID ==
[~2017-10-21] VITALS: Ht 165.1 cm; Wt 127.0 kg
[~2017-10-21 10:39] MED LIST changes: -OMEP40CA2 PO; -PROM1SUP7 RECTAL
[2017-10-21 10:43] VITALS: BP 171/97; PULSE 100; RESP 18; TEMP 97.9; O2SAT 100
[2017-10-21 11:45] VITALS: BP 162/91; PULSE 110; RESP 20; O2SAT 99
[2017-10-21 11:46] VITALS: O2SAT 99
[2017-10-21 11:52] LABS: AUTOMATED NEUTROPHIL # 10.1 TH/MM3 (1.8-7.7); BASOPHIL # 0.2 TH/MM3 (0-0.2); BASOPHIL % 1.3 % (0.0-2.0); CHLORIDE 100 MEQ/L (98-107); EOSINOPHIL % 0.2 % (0.0-4.0); HEMATOCRIT 44.1 % (35.0-46.0); HEMOGLOBIN 14.3 GM/DL (11.6-15.3); LYMPH % 16.4 % (9.0-44.0); LYMPHOCYTE # 2.3 TH/MM3 (1.0-4.8); MEAN CELL VOLUME 80.1 FL (80.0-100.0); MEAN CORPUSCULAR HEMOGLOBIN 25.9 PG (27.0-34.0); MEAN CORPUSCULAR HGB CONC 32.3 % (32.0-36.0); MEAN PLATELET VOLUME 9.6 FL (7.0-11.0); MONO % 8.2 % (0.0-8.0); MONOCYTE # 1.1 TH/MM3 (0-0.9); NEUT % 73.9 % (16.0-70.0); PLATELET COUNT 265 TH/MM3 (150-450); RED CELL DISTRIBUTION WIDTH 12.9 % (11.6-17.2); SODIUM (NA) 134 MEQ/L (136-145); WHITE BLOOD COUNT 13.8 TH/MM3 (4.0-11.0)
[2017-10-21 11:55] LABS: CALCIUM 9.2 MG/DL (8.5-10.1)
[2017-10-21 11:56] LABS: ALBUMIN 3.9 GM/DL (3.4-5.0); BICARBONATE 24.8 MEQ/L (21.0-32.0); BLOOD UREA NITROGEN 8 MG/DL (7-18); GLUCOSE,RANDOM 118 MG/DL (74-106)
[2017-10-21 11:59] LABS: ALT (GPT) 44 U/L (10-53); AST (GOT) 27 U/L (15-37); GLOMERULAR FILTRATION RATE 84 ML/MIN (>89)
--- NOTE | 2017-10-21 11:59 | PD ---
HPI Chief Complaint: GI Complaint Time Seen by Provider: 11:39 Travel History International Travel<30 days: No Contact w/Intl Traveler<30days: No Traveled to known affect area: No History of Present Illness HPI The patient was seen and examined in the presence of the nurse. This patient complains of uncontrollable nausea and vomiting. She has had many spells today. she complains of some epigastric discomfort. This is a flareup of chronic problem for this patient. She is here frequently for uncontrollable vomiting spells. She was seen here 5 days ago for the same and had a CT of abdomen and pelvis. Symptom severity is moderate to severe. No alleviating factors. No exacerbating factors. Rare alcohol use. Her only abdominal surgery is a . She denies . Duration is several weeks. PFSH Past Medical History Anxiety: Yes Depression: No Cancer: No Cardiovascular Problems: No Chemotherapy: No Cerebrovascular Accident: No Diminished Hearing: No Endocrine: No Gastrointestinal Disorders: Yes GERD: Yes Genitourinary: No Headaches: Yes Hiatal Hernia: No Immune Disorder: No Implanted Vascular Access Dvce: No Kidney Stones: Yes (at age less than 10) Musculoskeletal: No Neurologic: No Psychiatric: Yes Reproductive: No Respiratory: No Immunizations Current: Yes Migraines: Yes Radiation Therapy: No Seizures: No Ulcer: Yes Influenza Vaccination: No ?: Not : 3 Para: 2 Miscarriage: 1 : 1 Past Surgical History Abdominal Surgery: No Cardiac Surgery: No Section: Yes (X 1 TWINS) Ear Surgery: No Eye Surgery: No Genitourinary Surgery: No Gynecologic Surgery: Yes () Neurologic Surgery: No Oral Surgery: No Thoracic Surgery: No Other Surgery: Yes Social History Alcohol Use: Yes (occas beer, wine , mix drinks) Tobacco Use: No Substance Use: No Allergies-Medications (Allergen,Severity, Reaction): Coded Allergies: No Known Allergies (Unverified Adverse Reaction, Unknown, 10/21/17) Reported Meds & Prescriptions Reported Meds & Active Scripts Active Reglan (Metoclopramide HCl) 10 Mg Tab 10 Mg PO QID Zofran Odt (Ondansetron Odt) 4 Mg Tab 4 Mg SL Q6HR PRN Phenergan Supp (Promethazine HCl) 25 Mg Supp 25 Mg RECTAL Q6H PRN Zofran Odt (Ondansetron Odt) 4 Mg Tab 4 Mg SL Q6HR PRN Review of Systems General / Constitutional: No: Fever Eyes: No: Visual changes HENT: No: Headaches Cardiovascular: No: Chest Pain or Discomfort Respiratory: No: Shortness of Breath Gastrointestinal: Positive: Nausea, Vomiting, Abdominal Pain Genitourinary: No: Dysuria Musculoskeletal: No: Pain Skin: No Rash Neurologic: No: Weakness Psychiatric: No: Depression Endocrine: No: Polydipsia Hematologic/Lymphatic: No: Easy Bruising Physical Exam Narrative GENERAL: Morbidly obese well-developed patient with vomiting and epigastric pain . SKIN: Focused skin assessment reveals no rash and nodules. Skin is Warm and dry. HEAD: Atraumatic. Normocephalic. EYES: Pupils equal and round. No scleral icterus. No injection or drainage. ENT: No nasal bleeding or discharge. Mucous membranes pink and moist. NECK: Trachea midline. No JVD. CARDIOVASCULAR: Regular rate and rhythm. No murmur appreciated. RESPIRATORY: No accessory muscle use. Clear to auscultation. Breath sounds equal bilaterally. GASTROINTESTINAL: Abdomen soft, there is some epigastric tenderness without rebound or guarding, nondistended. Hepatic and splenic margins not palpable. MUSCULOSKELETAL: No obvious deformities. No clubbing. No cyanosis. No edema. NEUROLOGICAL: Awake and alert. No obvious cranial nerve deficits. Motor grossly within normal limits. Normal speech. PSYCHIATRIC: Appropriate mood and affect; insight and judgment normal. Data Data Last Documented VS Vital Signs Date Time Temp Pulse Resp B/P (MAP) Pulse Ox O2 Delivery O2 Flow Rate FiO2 10/21/17 13:45 65 18 107/45 (65) 97 Room Air 10/21/17 10:43 97.9 Orders Orders Complete Blood Count With Diff (10/21/17 11:00) Comprehensive Metabolic Panel (10/21/17 11:00) Urinalysis - C+S If Indicated (10/21/17 11:00) Ed Urine Pregnancytest Poc (10/21/17 11:00) Iv Access Insert/Monitor (10/21/17 11:00) Oxygen Administration (10/21/17 11:00) Oximetry (10/21/17 11:00) Lipase (10/21/17 11:00) Ondansetron Inj (Zofran Inj) (10/21/17 12:00) Promethazine Inj (Phenergan Inj) (10/21/17 12:00) Sodium Chlor 0.9% 1000 Ml Inj (Ns 1000 M (10/21/17 12:00) Morphine Inj (Morphine Inj) (10/21/17 12:00) Abdomen, Flat & Upright (10/21/17 ) Metoclopramide Inj (Reglan Inj) (10/21/17 13:00) Lorazepam Inj (Ativan Inj) (10/21/17 13:00) Labs Laboratory Tests Test 10/21/17 11:30 10/21/17 12:37 White Blood Count 13.8 TH/MM3 Red Blood Count 5.50 MIL/MM3 Hemoglobin 14.3 GM/DL Hematocrit 44.1 % Mean Corpuscular Volume 80.1 FL Mean Corpuscular Hemoglobin 25.9 PG Mean Corpuscular Hemoglobin Concent 32.3 % Red Cell Distribution Width 12.9 % Platelet Count 265 TH/MM3 Mean Platelet Volume 9.6 FL Neutrophils (%) (Auto) 73.9 % Lymphocytes (%) (Auto) 16.4 % Monocytes (%) (Auto) 8.2 % Eosinophils (%) (Auto) 0.2 % Basophils (%) (Auto) 1.3 % Neutrophils # (Auto) 10.1 TH/MM3 Lymphocytes # (Auto) 2.3 TH/MM3 Monocytes # (Auto) 1.1 TH/MM3 Eosinophils # (Auto) 0.0 TH/MM3 Basophils # (Auto) 0.2 TH/MM3 CBC Comment DIFF FINAL Differential Comment Blood Urea Nitrogen 8 MG/DL Creatinine 0.80 MG/DL Random Glucose 118 MG/DL Total Protein 8.2 GM/DL Albumin 3.9 GM/DL Calcium Level 9.2 MG/DL Alkaline Phosphatase 77 U/L Aspartate Amino Transf (AST/SGOT) 27 U/L Alanine Aminotransferase (ALT/SGPT) 44 U/L Total Bilirubin 0.5 MG/DL Sodium Level 134 MEQ/L Potassium Level 3.1 MEQ/L Chloride Level 100 MEQ/L Carbon Dioxide Level 24.8 MEQ/L Anion Gap 9 MEQ/L Estimat Glomerular Filtration Rate 84 ML/MIN Lipase 107 U/L Urine Collection Type CLEAN CATCH Urine Color YELLOW Urine Turbidity CLEAR Urine pH 7.5 Urine Specific [place] 1.015 Urine Protein NEG mg/dL Urine Glucose (UA) NEG mg/dL Urine Ketones 15 mg/dL Urine Occult Blood NEG Urine Nitrite NEG Urine Bilirubin NEG Urine Urobilinogen 0.2 MG/DL Urine Leukocyte Esterase NEG Urine WBC 0-2 /hpf Urine Squamous Epithelial Cells 0-5 /hpf Microscopic Urinalysis Comment CULT NOT INDICATED Urine Collection Time 12:37 [facility] Medical Decision Making Medical Screen Exam Complete: Yes Emergency Medical Condition: Yes Medical Record Reviewed: Yes Differential Diagnosis Cyclical vomiting syndrome, gastroparesis, colitis Narrative Course I have reviewed the patient's electronic medical record. I reviewed her visit from 5 days ago. I reviewed her CT scan. she has had a normal gastric emptying study here IV placed and labs sent I gave her Zofran and morphine and Phenergan and 1 L normal saline IV bolus Flat and upright abdomen x-ray was done to make sure ileus has not developed. She had CT just 5 days ago so I do not feel repeating that for the same problem would be helpful. X-rays are normal Labs are reviewed. Potassium is 3.1 and will be replaced orally On recheck she was still having nausea so I gave her a dose of Ativan and Reglan On another recheck she is doing much better and no longer vomiting. She is stable for outpatient follow-up. She is working on getting GI follow-up but must navigate her Medicaid so it is challenging for her I have written her scripts for nausea and potassium replacement Diagnosis Primary Impression: Nausea & vomiting Qualified Codes: R11.2 - Nausea with vomiting, unspecified Additional Impressions: Abdominal pain Qualified Codes: R10.84 - Generalized abdominal pain Hypokalemia Additional Instructions: The patient was warned about potential sedation for the medications they will receive on prescription. I have recommended clear liquids for 24 hours, then gradually advance as tolerated. Follow-up with primary care and GI physicians Med/Other Pt SpecificInfo: Prescription(s) given Scripts Potassium Bicarbonate Effervescent (K-Vescent) 25 Meq Tab 50 MEQ PO DAILY for Electrolyte Replacement, #2 TAB 0 Refills Prov: Fitz Hinds MD 10/21/17 Metoclopramide (Reglan) 10 Mg Tab 10 MG PO QID, #120 TAB 0 Refills Prov: Fitz Hinds MD 10/21/17 Ondansetron Odt (Zofran Odt) 4 Mg Tab 4 MG SL Q6HR Y for Nausea/Vomiting, #20 TAB 0 Refills Prov: Fitz Hinds MD 10/21/17 Promethazine Supp (Phenergan Supp) 25 Mg Supp 25 MG RECTAL Q6H Y for NAUSEA OR VOMITING, #20 SUPP 0 Refills Prov: Fitz Hinds MD 10/21/17 Disposition: 01 DISCHARGE HOME Condition: Stable Fitz Hinds MD Oct 21, 2017 11:59
[2017-10-21 12:00] LABS: TOTAL BILIRUBIN ADULT 0.5 MG/DL (0.2-1.0); TOTAL PROTEIN 8.2 GM/DL (6.4-8.2)
[2017-10-21] MEDS ORDERED: SODIUM CHLOR 0.9% 1000 ML INJ 1,000 ML IV ONE (12:00)
[2017-10-21] MEDS ORDERED: MORPHINE SULFATE 4 MG/ML INJ IV PUSH ONE (12:00)
[2017-10-21] MEDS ORDERED: PROMETHAZINE INJ 25 MG/ML VIAL IM ONE (12:00)
[2017-10-21] MEDS ORDERED: ONDANSETRON HCL 4 MG/2 ML VIAL IVP ONE (12:00)
[2017-10-21 12:02] LABS: ALKALINE PHOSPHATASE 77 U/L (45-117)
[2017-10-21 12:40] LABS: BILIRUBIN, URINE NEG (NEG); BLOOD, URINE NEG (NEG); GLUCOSE,URINE NEG (NEG); KETONE, URINE 15 mg/dL (NEG); NITRITE,URINE NEG (NEG); PH, URINE 7.5 (5.0-8.5); URINE COLOR YELLOW (YELLW/STRAW); URINE LEUKOCYTE ESTERASE NEG (NEG)
[2017-10-21 12:44] LABS: SQUAMOUS EPITHELIAL CELL URINE 0-5 /hpf (0-5); WBC, URINE 0-2 /hpf (0-5)
--- NOTE | 2017-10-21 12:55 | RADRPT ---
EXAM DATE/TIME: 10/21/2017 11:53 [facility] COMPARISON: ABDOMEN FLAT & UPRIGHT, October 17, 2016, 17:02. INDICATIONS : Severe epigastric abdominal pain, nausea, vomiting. MEDICAL HISTORY : Renal calculi. Migraines. Ulcer. GERD. Gestational diabetes. Anxiety. SURGICAL HISTORY : section. ENCOUNTER: [facility] ACUITY: 2 weeks PAIN SCORE: 9/10 LOCATION: abdomen. FINDINGS: Supine and upright views of the abdomen demonstrate a relative paucity of bowel gas. There are no fea tures to indicate obstruction. No organomegaly or concerning calcifications are identified. There is no abnormal mass effect. Upright image demonstrates no significant air-fluid level or free intraperit lomas air. Navel piercing is present. Bones demonstrate no acute finding in lung bases are clear. CONCLUSION: No abnormality is identified. Keyon Vega MD on October 21, 2017 at 12:51 Board Certified Radiologist. This report was verified electronically.
[2017-10-21] MEDS ORDERED: METOCLOPRAMIDE HCL 10 MG/2 ML VIAL IV PUSH ONE (13:00)
[2017-10-21] MEDS ORDERED: LORazepam 2 MG/ML VIAL IV PUSH ONE (13:00)
[2017-10-21 13:45] VITALS: BP 107/45; PULSE 65; RESP 18; O2SAT 97
[2017-10-21] MEDS ORDERED: ZOFR4TAB3 SL (14:24)
[2017-10-21] MEDS ORDERED: REGL10TA5 PO (14:24)
[2017-10-21] MEDS ORDERED: PROM1SUP7 RECTAL (14:24)
[2017-10-21] MEDS ORDERED: KLORCONEF PO (14:25)
== END 2017-10-21 14:40 | disposition home or self-care (01) ==
LOC: PHED 10:39
DX: R11.2 Nausea with vomiting, unspecified (principal); R10.13 Epigastric pain; E87.6 Hypokalemia
CPT/HCPCS: 74019; 80053; 81001; 83690; 84703; 85025; 96361; 96372; 96374; 96375; 99284; J2060; J2270; J2405; J2550; J2765; J7030